=== PATIENT | male | born 1960 | race Caucasian/White ===

== ENCOUNTER 2021-12-02 12:09 | Inpatient (IN) ==
--- NOTE | 2021-12-02 14:54 | Emergency Department Note ---
Impression & Plan Acute CHF, GILL (dyspnea on exertion), Anemia ED Provider Note NAME: TAWANA [id number] HAYLEY AGE: 61 SEX: M : 1960 ARRIVES VIA: Walk-In INFORMANT: Patient, ED PROVIDER(S): Yrn Alonzo MD Chief Complaint: Shortness of breath HPI: Patient presents due to concern for shortness of breath which is been ongoing over approximately a 2-week period but is gotten progressively worse with an associated 20+ pound weight gain with associated low back or leg swelling. The patient has been started on Bumex 1.5 mg daily in the last several days. The patient reportedly had a recent echocardiogram and states that he was told that he likely will need a valve replacement. The patient does have a prior history of some lung disease. 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 The patient described the collateral circulation as veins grew around it and provided blood flow. The patient does not believe that this was in the heart. Patient denies any chest pains. The patient does have exertional dyspnea and orthopnea. Patient states he is compliant with his medications no drug or alcohol use. The patient is currently at [facility] and has been so since 2019. 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 These were not done recently. I did speak with Nuha BRENNER at the [facility] his did review the echo and stated the patient has an EF of 25% dilated LVH and hypokinesis with elevated LV pressure. She states that the patient had been on Lasix in the past but has been titrated trading his Bumex over the last 2 weeks and is currently taking 1.5 mg daily. Patient is to follow-up with [facility] physician group cardiology Dr. Johnson in the next month or so. Patient has not followed up with cardiology in some time. She did review the patient does not have any significant aortic valvular stenosis or regurg. The patient did have some mild to moderate tricuspid regurg. ROS: See HPI for pertinent positives and negatives. A total of 10 systems were reviewed and otherwise negative. Past medical history: See below Surgical history: See below Social history: See below Physical Exam: GENERAL: NAD, wearing a mask, non-toxic. Mild tachypnea. EYE EXAM: Normal conjunctiva. PERRL, no anisocoria and EOM's grossly intact w/o pain. NECK: Supple, no nuchal rigidity, no adenopathy, non-tender. No signs of meningismus. FROM of the neck with good chin to chest and neck extension. No stridor. LUNGS: Mild tachypnea with bibasilar crackles. Normal chest wall mechanics. HEART: NSR, no MRG. ABDOMEN: Abdomen soft, non-tender, normo-active bowel sounds, no masses, no rebound or guarding. BACK: No CVA TTP. SKIN: No rashes and no bruising. UPPER EXTREMITIES: Upper extremities are grossly normal. LOWER EXTREMITIES: Grossly normal, 2-3+ bilateral lower extremity edema. Patient TMA of the right foot, absent toes on left foot. NEURO EXAM: A&O x3, cranial nerves II-XII grossly intact, normal speech, moves all 4 extremities. Differential diagnoses: Reactive airway disease, pneumonia, pneumothorax, COPD, CHF, infections, cardiac ischemia, pulmonary embolism, musculoskeletal, gastrointestinal, as well as other pathologies. Course: Patient was seen and evaluated the bedside. Full history physical exam was performed. EKG interpreted by me Imaging Studies: See Below Cardiac monitoring: An order was placed for continuous cardiac monitoring. The monitor shows a rate of with rhythm. MDM: Patient was seen due to concern for orthopnea GILL leg swelling. The patient was told that he might benefit from a valve replacement and what he self describes as sounds like some aortic stenosis or regurg causing some of his symptoms. The patient states he is compliant with his medications and is taking a diuretic. Patient denies any fevers or chills. Blood work was obtained which included CBC CMP coags BNP COVID swab and chest x-ray. [id number] BMP also obtained. Patient's blood work showed a white count of 11 with a hemoglobin 11.9. Platelet count is unremarkable. Kidney function unremarkable. Patient does have elevation in troponin believe this is demand ischemia. BNP is elevated at 746. 2 mg of Bumex ordered. Patient is COVID-negative. Patient's plain chest film shows left pleural effusion patient does have cardiomegaly. I did speak the on-call hospitalist Dr. Llamas and the patient was admitted to the medicine service. Past Med/Surg History Medical History Adjustment disorder with depressed mood Anxiety disorder, unspecified Benign prostatic hyperplasia without lower urinary tract symptoms Chronic obstructive pulmonary disease, unspecified Hyperlipidemia, unspecified Other psoriasis Presence of cardiac pacemaker Thrombocytopenia, unspecified Type 2 diabetes mellitus with unspecified complications Social History Smoking Status: Never smoker Hx Alcohol Use: No Hx Substance Use: No Preferred Language: Wolof Communication Ability: Effective Certified Tower Climber Required: No Beliefs That Will Affect Care: None Current Living Situation: Other Current Living Situation Comment: claudia Other Information That Helps Us Care for You: No Feels Safe at Home: Yes Safety Concerns: Feels Safe At This Time Allergies Allergies Allergy/AdvReac Type Severity Reaction Status Date / Time No Known Allergies Allergy Verified 11/19/21 16:26 Home Meds Home Medications Medication Instructions Recorded Confirmed acetaminophen 500 mg tablet 500 mg PO Q6H PRN 11/19/21 11/19/21 (Tylenol Extra Strength) albuterol sulfate 90 mcg/actuation 2 puff inhalation Q4H PRN 11/19/21 11/19/21 aerosol inhaler ammonium lactate 12 % topical cream 1 applic topical DAILY 11/19/21 11/19/21 aspirin 81 mg tablet,delayed 81 mg PO DAILY 11/19/21 11/19/21 release atorvastatin 40 mg tablet 40 mg PO DAILY 11/19/21 11/19/21 ciclesonide 80 mcg/actuation 1 puff inhalation BID 11/19/21 11/19/21 aerosol inhaler (Alvesco) finasteride 5 mg tablet 5 mg PO DAILY 11/19/21 11/19/21 furosemide 20 mg tablet 20 mg PO DAILY 11/19/21 11/19/21 lisinopril 20 mg tablet 20 mg PO DAILY 11/19/21 11/19/21 metformin 1,000 mg tablet 1,000 mg PO BID 11/19/21 11/19/21 metoprolol tartrate 50 mg tablet 25 mg PO BID 11/19/21 11/19/21 (Lopressor) mineral [id number] glyc applic topical DAILY 11/19/21 11/19/21 topical cream mirtazapine 30 mg tablet 30 mg PO DAILY 11/19/21 11/19/21 nortriptyline 50 mg capsule 50 mg PO DAILY 11/19/21 11/19/21 omeprazole 20 mg capsule,delayed 20 mg PO DAILY 11/19/21 11/19/21 release tamsulosin 0.4 mg capsule 0.4 mg PO DAILY 11/19/21 11/19/21 umeclidinium 62.5 mcg/actuation 1 inh inhalation DAILY 11/19/21 11/19/21 blister powder for inhalation (Incruse Ellipta) Results & Data (ED) Vital Signs Vital Signs - 24 hr 12/02/21 12:13 12/02/21 15:28 12/02/21 15:28 Temperature 36.3 C L Temperature Source Temporal Artery Scan Pulse Rate 99 H Pulse Rate [Apical] 80 Pulse Rate from SpO2 Sensor Pulse Rhythm [Apical] Regular Pulse Strength [Apical] Normal Respiratory Rate 26 H 26 H Respiratory Effort / Characteristics Non-Labored Respiratory Depth Normal Respiratory Pattern Regular Blood Pressure 114/68 Blood Pressure [Left Arm] 158/74 H Blood Pressure Mean 83 Blood Pressure Mean [Left Arm] 102 Blood Pressure Position Sitting Blood Pressure Position [Left Arm] Lying Pulse Oximetry 97 94 94 Oxygen Delivery Method Room Air Room Air Room Air Oxygen Flow Rate 0 Sepsis Recent Fever Within 48 Hours No Sepsis New/Unexplained Change in Mental Status No Sepsis Action Taken by Nursing No Action Required 12/02/21 15:28 12/02/21 15:32 12/02/21 15:40 Temperature Temperature Source Pulse Rate 80 96 H 87 Pulse Rate [Apical] Pulse Rate from SpO2 Sensor 94 H 82 Pulse Rhythm [Apical] Pulse Strength [Apical] Respiratory Rate 31 H 32 H Respiratory Effort / Characteristics Respiratory Depth Respiratory Pattern Blood Pressure Blood Pressure [Left Arm] Blood Pressure Mean Blood Pressure Mean [Left Arm] Blood Pressure Position Blood Pressure Position [Left Arm] Pulse Oximetry 94 92 96 Oxygen Delivery Method Room Air Oxygen Flow Rate Sepsis Recent Fever Within 48 Hours Sepsis New/Unexplained Change in Mental Status Sepsis Action Taken by Nursing 12/02/21 15:50 12/02/21 16:00 12/02/21 16:10 Temperature Temperature Source Pulse Rate 84 96 H 89 Pulse Rate [Apical] Pulse Rate from SpO2 Sensor Pulse Rhythm [Apical] Pulse Strength [Apical] Respiratory Rate 41 H 31 H 18 Respiratory Effort / Characteristics Respiratory Depth Respiratory Pattern Blood Pressure Blood Pressure [Left Arm] Blood Pressure Mean Blood Pressure Mean [Left Arm] Blood Pressure Position Blood Pressure Position [Left Arm] Pulse Oximetry Oxygen Delivery Method Oxygen Flow Rate Sepsis Recent Fever Within 48 Hours Sepsis New/Unexplained Change in Mental Status Sepsis Action Taken by Nursing 12/02/21 16:20 12/02/21 16:30 12/02/21 16:40 Temperature Temperature Source Pulse Rate 89 98 H 96 H Pulse Rate [Apical] Pulse Rate from SpO2 Sensor Pulse Rhythm [Apical] Pulse Strength [Apical] Respiratory Rate 26 H 25 H 28 H Respiratory Effort / Characteristics Respiratory Depth Respiratory Pattern Blood Pressure Blood Pressure [Left Arm] Blood Pressure Mean Blood Pressure Mean [Left Arm] Blood Pressure Position Blood Pressure Position [Left Arm] Pulse Oximetry Oxygen Delivery Method Oxygen Flow Rate Sepsis Recent Fever Within 48 Hours Sepsis New/Unexplained Change in Mental Status Sepsis Action Taken by Nursing 12/02/21 16:50 12/02/21 17:00 12/02/21 17:10 Temperature Temperature Source Pulse Rate 95 H 86 91 H Pulse Rate [Apical] Pulse Rate from SpO2 Sensor Pulse Rhythm [Apical] Pulse Strength [Apical] Respiratory Rate 29 H 28 H 25 H Respiratory Effort / Characteristics Respiratory Depth Respiratory Pattern Blood Pressure Blood Pressure [Left Arm] Blood Pressure Mean Blood Pressure Mean [Left Arm] Blood Pressure Position Blood Pressure Position [Left Arm] Pulse Oximetry Oxygen Delivery Method Oxygen Flow Rate Sepsis Recent Fever Within 48 Hours Sepsis New/Unexplained Change in Mental Status Sepsis Action Taken by [facility] Medications Current Medication List: was personally reviewed by me Laboratory Data Attestation: I reviewed the patient's lab results. Result diagrams: 12/02/21 14:45 12/02/21 14:45 Lab Results 12/02/21 12/02/21 12/02/21 Range/Units 14:45 14:45 14:45 WBC 11.47 H (4.8-10.8) K/ul RBC 4.44 L (4.63-6.08) M/uL Hgb 11.9 L (14.0-18.0) g/dl Hct 36.9 L (40.1-51.0) % MCV 83.1 (80.0-100.0) fL MCH 26.8 (25.0-34.0) pg MCHC 32.2 (32.0-36.0) g/dL RDW Std Deviation 45.7 (36.4-46.3) fL RDW Coeff of Lamonte 15.1 H (11.5-14.5) % Plt Count 256 (130-400) K/uL MPV 12.3 (9.4-12.4) fL Immature Gran % (Auto) 0.3 % Neut % (Auto) 77.2 % Lymph % (Auto) 15.3 % Cowley % (Auto) 5.7 % Eos % (Auto) 1.0 % Baso % (Auto) 0.5 % Neut # (Auto) 8.85 H (1.4-6.5) K/uL Lymph # (Auto) 1.75 (1.2-3.4) K/uL Cowley # (Auto) 0.65 (0.24-0.82) K/uL Eos # (Auto) 0.12 (0-0.50) K/uL Baso # (Auto) 0.06 (0-0.2) K/uL Immature Gran # (Auto) 0.04 H (0.00-0.02) K/uL PT 11.8 (9.0-12.0) Seconds INR 1.1 (0.9-1.1) APTT 29.9 (21.0-31.0) Seconds PTT Ratio 1.1 Sodium 138 (136-145) mmol/L Potassium 4.0 (3.5-5.1) mmol/L Chloride 103 (98-107) mmol/L Carbon Dioxide 24 (21-32) mmol/L Anion Gap 11 (3-11) BUN 12 (6-23) mg/dl Creatinine 0.94 (0.6-1.4) mg/dl Est Cr Clr Drug Dosing Not Reportable Est GFR ( Amer) 99.6 ml/min Est GFR (Non-Af Amer) 85.9 ml/min BUN/Creatinine Ratio 12.8 (10-20) Glucose 124 H (70-99(Fasting)) mg/dl Calcium 8.9 (8.5-10.1) mg/dl Magnesium 1.2 L (1.7-2.4) mg/dl Total Bilirubin 0.5 (0.2-1.0) mg/dl AST 10 L (13-39) U/L ALT 12 (7-52) U/L Alkaline Phosphatase 97 (34-104) U/L Troponin I High Sens 21.4 H (0-20) pg/ml B-Natriuretic Peptide (0-100) pg/ml Total Protein 7.0 (6.0-8.3) gm/dl Albumin 4.0 (3.4-5.0) gm/dl Globulin 3.0 (2.5-4.0) gm/dl Albumin/Globulin Ratio 1.3 (0.9-2) SARS-CoV-2, RNA, NAAT (NEGATIVE) 12/02/21 12/02/21 Range/Units 14:45 15:20 WBC (4.8-10.8) K/ul RBC (4.63-6.08) M/uL Hgb (14.0-18.0) g/dl Hct (40.1-51.0) % MCV (80.0-100.0) fL MCH (25.0-34.0) pg MCHC (32.0-36.0) g/dL RDW Std Deviation (36.4-46.3) fL RDW Coeff of Lamonte (11.5-14.5) % Plt Count (130-400) K/uL MPV (9.4-12.4) fL Immature Gran % (Auto) % Neut % (Auto) % Lymph % (Auto) % Cowley % (Auto) % Eos % (Auto) % Baso % (Auto) % Neut # (Auto) (1.4-6.5) K/uL Lymph # (Auto) (1.2-3.4) K/uL Cowley # (Auto) (0.24-0.82) K/uL Eos # (Auto) (0-0.50) K/uL Baso # (Auto) (0-0.2) K/uL Immature Gran # (Auto) (0.00-0.02) K/uL PT (9.0-12.0) Seconds INR (0.9-1.1) APTT (21.0-31.0) Seconds PTT Ratio Sodium (136-145) mmol/L Potassium (3.5-5.1) mmol/L Chloride (98-107) mmol/L Carbon Dioxide (21-32) mmol/L Anion Gap (3-11) BUN (6-23) mg/dl Creatinine (0.6-1.4) mg/dl Est Cr Clr Drug Dosing Est GFR ( Amer) ml/min Est GFR (Non-Af Amer) ml/min BUN/Creatinine Ratio (10-20) Glucose (70-99(Fasting)) mg/dl Calcium (8.5-10.1) mg/dl Magnesium (1.7-2.4) mg/dl Total Bilirubin (0.2-1.0) mg/dl AST (13-39) U/L ALT (7-52) U/L Alkaline Phosphatase (34-104) U/L Troponin I High Sens (0-20) pg/ml B-Natriuretic Peptide 746 H (0-100) pg/ml Total Protein (6.0-8.3) gm/dl Albumin (3.4-5.0) gm/dl Globulin (2.5-4.0) gm/dl Albumin/Globulin Ratio (0.9-2) SARS-CoV-2, RNA, NAAT NEGATIVE (NEGATIVE) Administered Medications Enoxaparin Sodium (Enoxaparin Inj 40 Mg/0.4 Ml Syr) 40 mg SQ Q24H PHILOMENA Stop: 01/01/22 19:59 Last Admin: 12/02/21 21:16 Dose: 40 mg Documented By: CARLENE Magnesium Sulfate/Dextrose (Magnesium Sulfate / D5w) 1 gm in 100 mls @ 50 mls/hr IV Q2H PHILOMENA Stop: 12/02/21 22:59 Last Admin: 12/02/21 21:25 Dose: 50 mls/hr Documented By: Infusion: 12/02/21 21:25 Dose: 50 mls/hr Documented By: Admin: 12/02/21 19:37 Dose: 50 mls/hr Documented By: Infusion: 12/02/21 19:34 Dose: 0 mls/hr Documented By: Admin: 12/02/21 17:34 Dose: 50 mls/hr Documented By: MANDY Insulin Aspart (Insulin Aspart Per Unit) 0 units SC ACHS PHILOMENA Stop: 01/01/22 20:59 Last Admin: 12/02/21 21:16 Dose: 9 units Documented By: CARLENE Co-signed By: MÓNICA Magnesium Oxide (Magnesium Oxide 400 Mg Tab) 400 mg PO BID PHILOMENA Stop: 01/01/22 20:59 Last Admin: 12/02/21 21:15 Dose: 400 mg Documented By: CARLENE Discontinued Medications Bumetanide 2 mg/ Syringe 8 mls @ 4 mls/min IV ONE ONE Stop: 12/02/21 16:05 Last Admin: 12/02/21 17:33 Dose: 4 mls/min Documented By: MANDY Imaging Data Radiologist's Impression: Chest X-Ray 12/02/21 12:18 SINGLE VIEW CHEST CLINICAL HISTORY: Dyspnea. FINDINGS: An AP, portable, upright chest radiograph is obtained. No prior studies are available for comparison at the time of dictation. The examination is degraded by portable technique and patient rotation. A 2-lead cardiac pacemaker is in place. The heart is enlarged noting atherosclerotic calcificati on of the thoracic aorta. There is pulmonary vascular congestion with mild pulmonary edema. There is a left pleural effusion with left basilar consolidation. Trace pleural effusion is seen on the right. No pneumothorax is seen. The skeletal structures are osteopenic. The bony thorax is grossly intact. IMPRESSION: 1. Cardiomegaly and cardiac pacemaker without evidence of congestive failure and pulmonary edema. 2. Left pleural effusion with dependent consolidation. ACT 112: Negative or not required by law. Electronically signed by: Mejia Clements M.D. 12/02/2021 3:48 PM Discharge Plan Visit Data Chief Complaint: Shortness of Breath/Dyspnea Stated Complaint: SOB, LOW ENERGY ED Provider: Yrn Alonzo Discharge Problem: Acute CHF, GILL (dyspnea on exertion), Anemia Patient Disposition: Admitted As Inpatient Discharge Instructions Interventions: ED Discharge Assessment Last Done: 12/02/21 18:45
[2021-12-02 15:31] LABS: Basophils # (auto) 0.06 K/uL (0-0.2); Basophils % (auto) 0.5 %; Eosinophils # (auto) 0.12 K/uL (0-0.50); Hematocrit (blood only) 36.9 % (40.1-51.0); Hemoglobin 11.9 g/dl (14.0-18.0); Immature Granulocytes # (auto) 0.04 K/uL (0.00-0.02); Immature Granulocytes % (auto) 0.3 %; Lymphocytes # (auto) 1.75 K/uL (1.2-3.4); Lymphocytes % (auto) 15.3 %; Mean Corpuscular Hemoglobin 26.8 pg (25.0-34.0); Mean Corpuscular Hgb Conc 32.2 g/dL (32.0-36.0); Mean Corpuscular Volume 83.1 fL (80.0-100.0); Mean Platelet Volume 12.3 fL (9.4-12.4); Monocytes # (auto) 0.65 K/uL (0.24-0.82); Monocytes % (auto) 5.7 %; Neutrophils # (auto) 8.85 K/uL (1.4-6.5); Neutrophils % (auto) 77.2 %; Platelet Count 256 K/uL (130-400); RDW Coefficient of Variation 15.1 % (11.5-14.5); RDW Standard Deviation 45.7 fL (36.4-46.3); Red Blood Count 4.44 M/uL (4.63-6.08); White Blood Count 11.47 K/ul (4.8-10.8)
[2021-12-02 15:43] LABS: INR 1.1 (0.9-1.1); Partial Thromboplastin Ratio 1.1; Partial Thromboplastin Time 29.9 Seconds (21.0-31.0); Prothrombin Time 11.8 Seconds (9.0-12.0)
--- NOTE | 2021-12-02 15:49 | XRay Report ---
SINGLE VIEW CHEST CLINICAL HISTORY: Dyspnea. FINDINGS: An AP, portable, upright chest radiograph is obtained. No prior studies are available for c omparison at the time of dictation. The examination is degraded by portable technique and patient rot ation. A 2-lead cardiac pacemaker is in place. The heart is enlarged noting atherosclerotic calcifica tion of the thoracic aorta. There is pulmonary vascular congestion with mild pulmonary edema. There i s a left pleural effusion with left basilar consolidation. Trace pleural effusion is seen on the righ t. No pneumothorax is seen. The skeletal structures are osteopenic. The bony thorax is grossly intact . IMPRESSION: 1. Cardiomegaly and cardiac pacemaker without evidence of congestive failure and pulmonary edema. 2. Left pleural effusion with dependent consolidation. ACT 112: Negative or not required by law. Electronically signed by: Mejia Clements M.D. 12/02/2021 3:48 PM
[2021-12-02 15:56] LABS: Alanine Aminotransferase 12 U/L (7-52); Albumin Globulin Ratio 1.3 (0.9-2); Alkaline Phosphatase 97 U/L (34-104); Anion Gap 11 (3-11); Aspartate Aminotransferase 10 U/L (13-39); BUN Creatinine Ratio 12.8 (10-20); Bilirubin,Total 0.5 mg/dl (0.2-1.0); Blood Urea Nitrogen 12 mg/dl (6-23); Calcium 8.9 mg/dl (8.5-10.1); Carbon Dioxide 24 mmol/L (21-32); Chloride 103 mmol/L (98-107); Est GFR (African American) 99.6 ml/min; Est GFR (Non-African American) 85.9 ml/min; Glucose 124 mg/dl (70-99(Fasting)); Magnesium 1.2 mg/dl (1.7-2.4); Sodium 138 mmol/L (136-145); Troponin I High Sensitivity 21.4 pg/ml (0-20)
[2021-12-02] MEDS ORDERED: BUMETANIDE 2 MG in SYRINGE 0 ML IV ONE (16:04)
--- NOTE | 2021-12-02 16:56 | History & Physical Report ---
Date of Service December 02, 2021 Assessment & Plan (1) Acute CHF: Plan: 61-year-old male with a history of CHF who presents with weight gain, shortness of breath, and elevated BNP with worsening lower extremity edema and without chest pain suspicious for acute on chronic CHF exacerbation Acute on chronic CHF Echo: Pending Continue aspirin daily Continue for statin 40 mg daily Patient on Lasix 20 mg daily [employer], given Bumex 2 mg in ER Continue metoprolol 25 mg p.o. twice daily tartrate, can convert this to succinate as outpatient if available Hypertensive, tachypneic on admission. No home oxygen requirement CXR: Cardiomegaly and pacemaker in place, mild pulmonary edema. Left pleural effusion with dependent consolidation is appreciated WBC 11.47, procalcitonin pending Patient clinically improving after receiving Bumex in the ER BNP 746, no prior baseline Troponin 21.4, EKG minus rhythm without ST segment changes QTC 523 COVID-negative Patient reports that he also thinks he has a tight valve, no follow-up has been scheduled for this but was told he may need it replaced at some point. We will follow on echo? Left ear CAD, history of [place] Patient reports he had a cardiac arrest when his pacer maker was being placed for bradycardia. Subsequent catheterization showed diffuse disease with collateral flow not amenable to stenting Has not had worsened chest pain with the shortness of breath, is not having chest pain at time of assessment Former smoker History of diabetes Troponin mildly elevated without acute ST elevations, suspicious for demand Treat acute on chronic CHF and follow qt prolongation With hypomagnesemia to 1.2 Magnesium lesion ordered, trended Chronically on mirtazapine and nortriptyline. Follow on telemetry Above meds held, patient reports he does not need to take The pain any longer. Takes nortriptyline for neuropathy Type 2 diabetes mellitus Hold metformin Basal bolus SSI DM diet Nortriptyline temporarily held for QT prolongation Anxiety/depression Patient reports he had been on mirtazapine for some adjustment going to senior care, does not need medications any longer. Given QT will also hold GERD Convert PPI to Protonix while inpatient LUTS Continue Flomax daily COPD/Asthma No PFTs available for review Continue umeclidinium/Alvesco or formulary eqiuvalent daily (2) Anxiety disorder, unspecified: (3) Chronic obstructive pulmonary disease, unspecified: (4) Hyperlipidemia, unspecified: (5) Presence of cardiac pacemaker: (6) Type 2 diabetes mellitus with unspecified complications: History of Present Illness Primary Care Provider: KARRI Rosado is a 61-year-old male with a past medical history of CHF who presents from the [facility] for concerns of a CHF overload. He has had 2 weeks of increased lower extremity swelling with associated shortness of breath, reportedly an echo was performed 11/12 are pending the records of this. Dizziness for one week, worsening shortness of breathWith weight gain and dyspnea on exertion. Denies chest pain/worsening chest pain/angina. No nausea, vomiting, diarrhea. Describes dizziness as fatigue and lightheadedness, not room spinning Had an echo at the senior care 11/12 and was reportedly told that he needed a defibrillator and potential valve at some point, is not sure of the details of this. Report is pending and requested in the ER. Will repeat echo given that this as not been able to be obtained at this time No chest pain at assessment Hx of pacer for bradycardia at [facility] and no problems since. Arrested during placement, had an [place] procedurally had a cath and disease not amenable to stending with collaterals per patient Increased shortness of breath worsened with movement NO urinary problems, dysuria. Pees a lot with his Lasix which she takes as prescribed Bilat leg swelling and 21lb weight gain in the last month. Dry weight ~240 pt thinks. Ports he is on metformin and Lantus in the senior care, thinks he is on 40 twice daily +2 units as needed and thinks that this is a long-acting COPD at baseline, feels he has not been wheezing former smoker. Medical History: Reviewed Medications: Reviewed Surgical History: Reviewed Allergies: Reviewed Social History: Reviewed, denies tobacco/etoh in senior care Code Status: Full Allergies Allergy/AdvReac Type Severity Reaction Status Date / Time No Known Allergies Allergy Verified 11/19/21 16:26 Home Medications Medication Instructions Recorded Confirmed Type acetaminophen 500 mg tablet 500 mg PO Q6H PRN 11/19/21 11/19/21 History (Tylenol Extra Strength) albuterol sulfate 90 mcg/actuation 2 puff inhalation Q4H PRN 11/19/21 11/19/21 History aerosol inhaler ammonium lactate 12 % topical cream 1 applic topical DAILY 11/19/21 11/19/21 History aspirin 81 mg tablet,delayed 81 mg PO DAILY 11/19/21 11/19/21 History release atorvastatin 40 mg tablet 40 mg PO DAILY 11/19/21 11/19/21 History ciclesonide 80 mcg/actuation 1 puff inhalation BID 11/19/21 11/19/21 History aerosol inhaler (Alvesco) finasteride 5 mg tablet 5 mg PO DAILY 11/19/21 11/19/21 History furosemide 20 mg tablet 20 mg PO DAILY 11/19/21 11/19/21 History lisinopril 20 mg tablet 20 mg PO DAILY 11/19/21 11/19/21 History metformin 1,000 mg tablet 1,000 mg PO BID 11/19/21 11/19/21 History metoprolol tartrate 50 mg tablet 25 mg PO BID 11/19/21 11/19/21 History (Lopressor) mineral [id number] glyc applic topical DAILY 11/19/21 11/19/21 History topical cream mirtazapine 30 mg tablet 30 mg PO DAILY 11/19/21 11/19/21 History nortriptyline 50 mg capsule 50 mg PO DAILY 11/19/21 11/19/21 History omeprazole 20 mg capsule,delayed 20 mg PO DAILY 11/19/21 11/19/21 History release tamsulosin 0.4 mg capsule 0.4 mg PO DAILY 11/19/21 11/19/21 History umeclidinium 62.5 mcg/actuation 1 inh inhalation DAILY 11/19/21 11/19/21 History blister powder for inhalation (Incruse Ellipta) Past Med/Surg History Medical History (Updated 12/02/21 @ 17:09 by Jose David Llamas MD) Adjustment disorder with depressed mood Anxiety disorder, unspecified Benign prostatic hyperplasia without lower urinary tract symptoms Chronic obstructive pulmonary disease, unspecified Hyperlipidemia, unspecified Other psoriasis Presence of cardiac pacemaker Thrombocytopenia, unspecified Type 2 diabetes mellitus with unspecified complications Social History Smoking Status: Former smoker Preferred Language: [place] Feels Safe at Home: Yes Review of Systems Review of Systems: All systems reviewed & are unremarkable except as noted in Subjective Physical Exam Physical Exam: General: A&Ox3. NAD. Cooperative. HEENT: Atraumatic, normocephalic. Hearing grossly intact, pupils equal and reactive to Pulm: Bibasilar crackles. Tachypneic. No wheezes. Cardiac: RRR, soft systolic murmur.. Radial pulses intact and symmetrical. JVD is present Abdominal: Nontender, nondistended, soft. BS present. Extremities: Pitting edema in the lower extremities bilaterally sensation soft touch intact at lateral legs, patient does endorse some neuropathy and diminished but not absent sensation to soft touch in feet bilaterally Results & Data Results & Data ([facility]) Vital Signs (Past 12 Hours) Vital Signs Temp Pulse Pulse Resp BP BP Pulse Ox 12/02/21 15:28 80 94 12/02/21 15:28 80 26 H 158/74 H 94 12/02/21 15:28 94 12/02/21 12:13 36.3 C L 99 H 26 H 114/68 97 O2 Del Method O2 Flow Rate 12/02/21 15:28 Room Air 12/02/21 15:28 Room Air 12/02/21 15:28 Room Air 0 12/02/21 12:13 Room Air PG Care Time/CCT Total # of Minutes Spent Total Time Spent with Patient: Total time spent is greater than 50% in coordination of care (as documented) at patient's floor/unit and/or counseling patient: Coding Level of Care Code 14968 Initial Inpt Care Lvl 2 Diagnoses Acute CHF I50.9 Anxiety disorder, unspecified F41.9 Chronic obstructive pulmonary disease, unspecified J44.9 Hyperlipidemia, unspecified E78.5 Presence of cardiac pacemaker Z95.0 Type 2 diabetes mellitus with unspecified complications E11.8
[2021-12-02] MEDS: MAGNESIUM SULFATE / D5W 1 GM/100 ML BAG IV SCH ×3 (17:34→21:25)
[2021-12-02 17:43] LABS: Appearance Urine Clear (Clear); Bilirubin Urine Negative (Negative); Blood Urine Negative (Negative); Color Urine Yellow; Glucose Urine UA Negative (Negative); Ketones Urine 1+ (Negative); Leukocyte Esterase Urine Negative (Negative); Nitrite Urine Negative (Negative); Protein Urine Negative (Negative); Specific Gravity Urine 1.003 (1.000-1.030); Urobilinogen Urine Negative (Negative); pH Urine 6.5 (4.5-7.5)
[2021-12-02] MEDS ORDERED: PHARMACY GLYCEMIC MGMT CONSULT PRN (19:21)
[2021-12-02] MEDS ORDERED: GLUCOSE 10 TAB/TUBE PO PRN (20:00)
[2021-12-02] MEDS ORDERED: CARBOHYDRATES FOR HYPOGLYCEMIA PO PRN (20:00)
[2021-12-02] MEDS ORDERED: GLUCOSE 40% GEL 15 GM TUBE PO PRN (20:00)
[2021-12-02] MEDS ORDERED: GLUCAGON FOR INJ 1 MG VIAL IM PRN (20:00)
[2021-12-02] MEDS ORDERED: DEXTROSE 50% 50 ML SYRINGE IV PRN (20:00)
[2021-12-02] MEDS: MAGNESIUM OXIDE 400 MG TAB PO SCH (21:15)
[2021-12-02] MEDS: ENOXAPARIN INJ 40 MG/0.4 ML SYR SQ SCH (21:16)
[2021-12-02] MEDS: INSULIN ASPART PER UNIT SC SCH (21:16)
[2021-12-03 02:23] LABS: Basophils # (auto) 0.06 K/uL (0-0.2); Basophils % (auto) 0.5 %; Eosinophils # (auto) 0.16 K/uL (0-0.50); Eosinophils % (auto) 1.3 %; Hematocrit (blood only) 38.3 % (40.1-51.0); Hemoglobin 12.2 g/dl (14.0-18.0); Immature Granulocytes # (auto) 0.03 K/uL (0.00-0.02); Immature Granulocytes % (auto) 0.2 %; Lymphocytes # (auto) 1.63 K/uL (1.2-3.4); Lymphocytes % (auto) 12.9 %; Mean Corpuscular Hgb Conc 31.9 g/dL (32.0-36.0); Mean Corpuscular Volume 84.7 fL (80.0-100.0); Mean Platelet Volume 12.2 fL (9.4-12.4); Monocytes % (auto) 7.9 %; Neutrophils # (auto) 9.78 K/uL (1.4-6.5); Neutrophils % (auto) 77.2 %; Platelet Count 249 K/uL (130-400); RDW Coefficient of Variation 15.2 % (11.5-14.5); RDW Standard Deviation 46.6 fL (36.4-46.3); Red Blood Count 4.52 M/uL (4.63-6.08); White Blood Count 12.66 K/ul (4.8-10.8)
[2021-12-03 02:53] LABS: BUN Creatinine Ratio 12.9 (10-20); Calcium 8.7 mg/dl (8.5-10.1); Creatinine Clr Calc Pharmacy 100.8 ml/min; Est GFR (African American) 91.3 ml/min; Est GFR (Non-African American) 78.8 ml/min; Magnesium 1.7 mg/dl (1.7-2.4); Potassium 3.7 mmol/L (3.5-5.1)
--- NOTE | 2021-12-03 05:44 | Electrocardiogram Report ---
Test Reason : Blood Pressure : / mmHG Vent. Rate : 100 BPM Atrial Rate : 100 BPM P-R Int : 192 ms QRS Dur : 148 ms QT Int : 406 ms P-R-T Axes : -09 -54 105 degrees QTc Int : 523 ms Sinus rhythm with Premature atrial complexes Left axis deviation Left bundle branch block Abnormal ECG No previous ECGs available Confirmed by Dino Johnson ([id number]) on 12/03/2021 5:43:31 AM Referred By: Confirmed By:Dino Johnson
[2021-12-03 07:18] LABS: Estimated Average Glucose 200 mg/dl; Hemoglobin A1C 8.6 % (4.5-5.6)
[2021-12-03] MEDS: INSULIN ASPART PER UNIT SC SCH ×4 (08:37→20:31)
[2021-12-03] MEDS: UMECLIDINIUM BROMIDE 62.5MCG/BLISTER 7 PUFFS/INHALER INH SCH (08:38)
[2021-12-03] MEDS: FUROSEMIDE 40 MG/4 ML VIAL IV SCH (08:38)
[2021-12-03] MEDS: FLUTICASONE FUROATE 100MCG 14 PUFFS/INHALER INH SCH (08:38)
[2021-12-03] MEDS: MAGNESIUM OXIDE 400 MG TAB PO SCH ×2 (08:39→20:20)
[2021-12-03] MEDS: lisinopril 20 MG TAB PO SCH (08:39)
[2021-12-03] MEDS: TAMSULOSIN HCL 0.4 MG CAP PO SCH (08:39)
[2021-12-03] MEDS: FINASTERIDE 5 MG TAB PO SCH (08:40)
[2021-12-03] MEDS: ASPIRIN 81 MG ECTAB PO SCH (08:40)
[2021-12-03] MEDS: ATORVASTATIN 40 MG TAB PO SCH (08:40)
[2021-12-03] MEDS: PANTOprazole 40 MG TAB PO SCH (08:40)
[2021-12-03] MEDS ORDERED: INSULIN HUMAN NPH SC ONE (08:45)
--- NOTE | 2021-12-03 11:36 | Pharmacy Report ---
Pharmacy Glycemic Short Note 2 - Date of Service December 03, 2021 - Glycemic Short BSG Results (Last 24 hours): 12/02/21 12/02/21 12/03/21 14:45 20:13 01:45 Glucose 124 H 153 H POC Glucose 171 H 12/03/21 07:58 Glucose POC Glucose 184 H OUTPATIENT ANTIDIABETIC REGIMEN: * A1C = 8.6% (12/03/21) * NPH 40 units BID + SSI for correction - confirmed with KARRI Capellan * metformin 1000 mg PO BID ASSESSMENT: * Jeb is a 61 yo T2DM admitted with CHF. He demonstrated decent BSG control on 12/02/21. * Fasting BSG of 184 mg/dL today. Will start patient on NPH BID per scale. Reduced dose compared to outpatient per I suspect he will receive significantly more Novolog while admitted. * Tighten Novolog parameters based on outpatient insulin use. PLAN FOR INPATIENT GLYCEMIC CONTROL: * Hold outpatient oral diabetes medications * Basal insulin * NPH 25-30 units SQ BID per scale (see eMAR for details) * Bolus insulin * NovoLog per scale ACHS or Q6hrs while NPO * Goal Range: Low 110 mg/dL - High 140 mg/dL * Correction Factor: 20 mg/dL/unit * Nutritional / Prandial insulin per carb ratio of 1 unit per 7 grams CHO consumed
[2021-12-03] MEDS: INSULIN HUMAN NPH SC SCH (16:56)
--- NOTE | 2021-12-03 17:15 | XCELERA ---
[id number]
[2021-12-03] MEDS: ENOXAPARIN INJ 40 MG/0.4 ML SYR SQ SCH (20:19)
--- NOTE | 2021-12-03 20:51 | Hospitalist Progress Note ---
Date of Service December 03, 2021 Assessment & Plan (1) Acute CHF: Plan: 61-year-old male with a history of CHF who presents with weight gain, shortness of breath, and elevated BNP with worsening lower extremity edema and without chest pain suspicious for acute on chronic CHF exacerbation Acute on chronic CHF Significantly reduced EFhis concern about whether or not he needs an ICD is certainly a valid 1we will ask cardiology -Continue aggressive diuresis -Continue afterload reduction with TONI inhibitorif care home formulary has Entresto, would definitely want to switch to this -Add spironolactone -Uncertain if present formulary has [id number] so certainly would want to add as well -Suspect ischemic cardiomyopathy as the culprit, asked for results of prior heart cath CAD, history of [place] Patient reports he had a cardiac arrest when his pacer maker was being placed for bradycardia. Subsequent catheterization showed diffuse disease with collateral flow not amenable to stenting Suspect he has an ischemic cardiomyopathyhave requested report of prior heart cath. Continue aspirin (ensure it is on his home meds at discharge) atorvastatin 40 mg (consider increase to 80) lisinopril, metoprolol. -None of current symptoms sound consistent with angina qt prolongation With hypomagnesemia to 1.2treatedimproved to 1.7. Repeat EKG. Chronically on mirtazapine and nortriptyline. Follow on telemetry Above meds held, patient reports he does not need to take The pain any longer. Takes nortriptyline for neuropathy Type 2 diabetes mellitus A1c 8.6. On basal bolus insulin. Sugars this morning were still little high, but improving through the daycontinue current care and follow. Anxiety/depression Patient reports he had been on mirtazapine for some adjustment going to care home, does not need medications any longer. Given QT will also hold GERD PPI LUTS Continue Flomax daily COPD/Asthma No PFTs available for review Continue umeclidinium/Alvesco or formulary eqiuvalent daily DVT prophylaxis Lovenox (2) Anxiety disorder, unspecified: (3) Chronic obstructive pulmonary disease, unspecified: (4) Hyperlipidemia, unspecified: (5) Presence of cardiac pacemaker: (6) Type 2 diabetes mellitus with unspecified complications: Admission and Anticipated Discharge Date Admission Date: December 02, 2021 Subjective Feeling better than beforebut still definitely dyspneic. Notes particularly whenever he lays down he gets short of breath and dizzy. Notes that his walking to and from the bathroom is less short of breath than it would have been yesterday or the day beforehe also notes that he is going to the bathroom and voiding quite copiously. Asks good questions about his echocardiogram and wo nders if he needs an ICD. 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 He notes his pacemaker to the best of his knowledge is not an ICD and actually wonders with his low EF if he would require 1. Notes that he had a heart cath done probably 3 or 4 years ago it sounds like he had at least one dominant blockage with collaterals, its unclear what the rest of the findings were. Review of Systems Review of Systems: All systems reviewed & are unremarkable except as noted in HPI & below Physical Exam Physical Exam: In general he is awake and alert pleasant no distress. HEENT normocephalic atraumatic mucous membranes moist. Lungs show rales to about the mid lung field bilaterally he has good air entry otherwise no other rhonchi or wheezes good effort no accessory muscle use. Neuro shows cranial nerves II through XII be grossly intact gross motor and sensory intact. Results & Data Results & Data ([facility]) Vital Signs (Past 12 Hours) Vital Signs Temp Pulse Resp BP BP Pulse Ox O2 Del Method 12/03/21 20:36 Room Air 12/03/21 20:24 97.3 F L 109 H 20 130/87 93 Room Air 12/03/21 15:40 97.5 F L 109 H 22 133/95 95 Room Air 12/03/21 11:44 97.7 F 104 H 18 128/85 92 Room Air 12/03/21 10:55 Room Air PG Care Time/CCT Total # of Minutes Spent Total Time Spent with Patient: Total time spent is greater than 50% in coordination of care (as documented) at patient's floor/unit and/or counseling patient: Coding Level of Care Code 65018 Subseq Hosp Care Lvl 3 Diagnoses Acute CHF I50.9 Anxiety disorder, unspecified F41.9 Chronic obstructive pulmonary disease, unspecified J44.9 Hyperlipidemia, unspecified E78.5 Presence of cardiac pacemaker Z95.0 Type 2 diabetes mellitus with unspecified complications E11.8
[2021-12-04] MEDS: ACETAMINOPHEN 325 MG TAB PO PRN ×2 (05:38→21:38)
[2021-12-04 07:30] LABS: BUN Creatinine Ratio 14.7 (10-20); Calcium 8.8 mg/dl (8.5-10.1); Creatinine Clr Calc Pharmacy 89.5 ml/min; Est GFR (African American) 83.3 ml/min; Est GFR (Non-African American) 71.9 ml/min; Potassium 4.2 mmol/L (3.5-5.1)
[2021-12-04] MEDS: INSULIN HUMAN NPH SC SCH ×2 (09:19→16:55)
[2021-12-04] MEDS: INSULIN ASPART PER UNIT SC SCH ×4 (09:20→21:37)
[2021-12-04] MEDS: FINASTERIDE 5 MG TAB PO SCH (09:22)
[2021-12-04] MEDS: PANTOprazole 40 MG TAB PO SCH (09:22)
[2021-12-04] MEDS: lisinopril 20 MG TAB PO SCH (09:22)
[2021-12-04] MEDS: ATORVASTATIN 40 MG TAB PO SCH (09:22)
[2021-12-04] MEDS: MAGNESIUM OXIDE 400 MG TAB PO SCH ×2 (09:22→21:37)
[2021-12-04] MEDS: ASPIRIN 81 MG ECTAB PO SCH (09:22)
[2021-12-04] MEDS: SPIRONOLACTONE 25 MG TAB PO SCH (09:22)
[2021-12-04] MEDS: TAMSULOSIN HCL 0.4 MG CAP PO SCH (09:22)
[2021-12-04] MEDS: UMECLIDINIUM BROMIDE 62.5MCG/BLISTER 7 PUFFS/INHALER INH SCH (09:22)
[2021-12-04] MEDS: FLUTICASONE FUROATE 100MCG 14 PUFFS/INHALER INH SCH (09:23)
[2021-12-04] MEDS: FUROSEMIDE 40 MG/4 ML VIAL IV SCH (09:23)
--- NOTE | 2021-12-04 12:07 | Cardiology Consultation ---
Date of Consultation December 04, 2021 Assessment & Plan (1) Cardiomyopathy: (2) Mitral regurgitation: (3) GILL (dyspnea on exertion): (4) Acute CHF: (5) Left bundle branch block: (6) Coronary artery disease: (7) Presence of cardiac pacemaker: (8) Elevated troponin: Plan 1. Cardiomyopathy: He has severely reduced LV systolic function. This appears global. However, he does have a known history of coronary disease and this is likely ischemic in etiology. We will try to obtain some records from his prior evaluation to determine if repeat angiography is worthwhile. We should make his medical regimen more aggressive. I will start him on metoprolol succinate at his past dose of metoprolol tartrate. Spironolactone was recently started. Will change his lisinopril to Entresto. Think we can also start Jardiance. 2. Decompensated systolic heart failure: He clearly had an elevated BNP, increasing weight and dyspnea. He is responding well to diuresis. Symptoms and weight are improving. Renal function electrolytes appear stable. He appears to been on a small dose of diuretic as an outpatient. Perhaps tomorrow we can transition back to an oral regimen. 3. Coronary disease: By report. He clearly has multiple risk factors. Currently on a daily aspirin and high-dose atorvastatin. I will order him a lipid panel for the morning. He does not report symptoms of coronary insufficiency or angina. However, given his cardiomyopathy he may benefit from repeat angiography. Will wait his old reports. 4. Mitral regurgitation: Mild to moderate. 5. Borderline aortic root dilation 6. Bradycardia: He has a normally functioning dual-chamber permanent pacemaker. Interrogation performed today revealed some far field over sensing. I changed him to MVP mode. I was not able to complete the entire interrogation as he needed to use the restroom urgently. The device recorded atrial fibrillation, but I believe these are simply episodes of over sensing and atrial ectopy. 7. Left bundle branch block: He appears have a left bundle branch block morphology on his EKG. QRS duration is greater than 150 milliseconds. It is not clear this represents pseudo fusion as it did appear that he was pacing quite frequently on his device interrogation. I switched his mode. Will repeat an EKG. If he has persistently low left ventricular function despite guideline directed medical therapy than he would be a candidate for an ICD and with his left bundle branch block a good candidate for ULTRASOUND TECHNOLOGIST SONOGRAPHER. 8. Reported history of intracranial hemorrhage and possible aneurysm. 9. Elevated troponin: Likely related to his cardiomyopathy and acute heart failure. I do not believe this is technical support representative of a recent acute coronary event. History of Present Illness Reason for Consultation: Congestive heart failure, cardiomyopathy Requesting Physician: Yaw Attending Physician: Han Tidwell, DO History of Present Illness The patient is a 61-year-old gentleman with an extensive cardiac history who was admitted from the present with symptoms of worsening shortness of breath and edema. The patient states that his history starts many years ago when he was likely referred for routine evaluation due to risk factors for cardiac disease. He was felt to have had evidence of an old infarct presumably on EKG and referred for coronary angiography. He believes this occurred approximately 4 years ago. He states that the angiography revealed obstructive coronary disease with good collateralization and no intervention was performed. He subsequent developed an element of bradycardia. Did not report symptoms consistent with bradycardia, but did report a history of a low heart rate. It seems that he was advised to undergo implantation of a pacemaker. The procedure was delayed due to infections in his toes. At his facility he was noted to have an element of edema. An echocardiogram was ordered and by his report this demonstrated some heart failure. Over the few days leading up to his admission he had periods of orthopnea and worsening dyspnea with any activity. He was noted to have gained a significant amount of weight possibly 21 lb. He can usually perform routine activity without limiting dyspnea. He has not been aware of any chest pains. While he did state that he was told he had a heart attack at 1 point, he does not recall any symptoms associated with such an event. He generally does not have dizziness or lightheadedness. He cannot recall any syncopal episodes. He is generally not been aware of any palpitations. Currently feeling somewhat lightheaded if he closes eyes. No orthopnea currently. Breathing better today. Allergies Allergy/AdvReac Type Severity Reaction Status Date / Time No Known Allergies Allergy Verified 11/19/21 16:26 Home Medications Medication Instructions Recorded Confirmed Type acetaminophen 500 mg tablet 500 mg PO Q6H PRN 11/19/21 11/19/21 History (Tylenol Extra Strength) albuterol sulfate 90 mcg/actuation 2 puff inhalation Q4H PRN 11/19/21 11/19/21 History aerosol inhaler ammonium lactate 12 % topical cream 1 applic topical DAILY 11/19/21 11/19/21 History aspirin 81 mg tablet,delayed 81 mg PO DAILY 11/19/21 11/19/21 History release atorvastatin 40 mg tablet 40 mg PO DAILY 11/19/21 11/19/21 History ciclesonide 80 mcg/actuation 1 puff inhalation BID 11/19/21 11/19/21 History aerosol inhaler (Alvesco) finasteride 5 mg tablet 5 mg PO DAILY 11/19/21 11/19/21 History furosemide 20 mg tablet 20 mg PO DAILY 11/19/21 11/19/21 History lisinopril 20 mg tablet 20 mg PO DAILY 11/19/21 11/19/21 History metformin 1,000 mg tablet 1,000 mg PO BID 11/19/21 11/19/21 History metoprolol tartrate 50 mg tablet 25 mg PO BID 11/19/21 11/19/21 History (Lopressor) mineral [id number] glyc applic topical DAILY 11/19/21 11/19/21 History topical cream mirtazapine 30 mg tablet 30 mg PO DAILY 11/19/21 11/19/21 History nortriptyline 50 mg capsule 50 mg PO DAILY 11/19/21 11/19/21 History omeprazole 20 mg capsule,delayed 20 mg PO DAILY 11/19/21 11/19/21 History release tamsulosin 0.4 mg capsule 0.4 mg PO DAILY 11/19/21 11/19/21 History umeclidinium 62.5 mcg/actuation 1 inh inhalation DAILY 11/19/21 11/19/21 History blister powder for inhalation (Incruse Ellipta) Patient History Medical History Adjustment disorder with depressed mood Anxiety disorder, unspecified Benign prostatic hyperplasia without lower urinary tract symptoms Chronic obstructive pulmonary disease, unspecified Hyperlipidemia, unspecified Other psoriasis Presence of cardiac pacemaker Thrombocytopenia, unspecified Type 2 diabetes mellitus with unspecified complications Social History Smoking Status: Never smoker Hx Alcohol Use: No Hx Substance Use: No Preferred Language: Burkinan Communication Ability: Effective Frameman Required: No Beliefs That Will Affect Care: None Current Living Situation: Other Current Living Situation Comment: [facility] Other Information That Helps Us Care for You: No Feels Safe at Home: Yes Safety Concerns: Feels Safe At This Time Review of Systems Review of Systems: Per HPI. Reported history of a brain aneurysm and subsequent hemorrhage. Initial presentation involve a headache. Treated conservatively. Physical Exam Physical Exam: The patient is alert and oriented. Mood and affect appeared normal. He answered all questions appropriately. HEENT: Pupils are equal and reactive to light and accommodation. Extraocular movements are intact. The sclerae are anicteric. Neuro: Cranial nerves intact Lungs: Clear to auscultation bilaterally. He has good air movement without use of accessory muscles. No rales wheezes or rhonchi. Chest: Well-healed pacemaker implant site in the left upper pectoral area. Cardiac: Heart demonstrates a regular rate and rhythm with frequent ectopy. Normal S1 and S2. No murmurs on examination. Pulses: The patient has palpable radial pulses bilaterally that are equal in intensity Extremities: There was no evidence of hypoperfusion. There is no cyanosis or clubbing. Mild to moderate lower extremity edema to mid calf Skin: I did not appreciate any rashes on examination today. Results & Data ([facility]) Vital Signs (Past 12 Hours) Vital Signs Temp Pulse Pulse Resp BP Pulse Ox O2 Del Method 12/04/21 07:45 Room Air 12/04/21 07:37 36.5 C 99 H 20 134/85 94 Room Air 12/04/21 03:57 36.7 C 95 H 18 139/73 94 Room Air Laboratory Results Abnormal Lab Results 12/03/21 12/03/21 12/03/21 13:58 16:09 20:26 Sodium Potassium Chloride Carbon Dioxide Anion Gap BUN Creatinine Est Cr Clr Drug Dosing Est GFR ( Amer) Est GFR (Non-Af Amer) BUN/Creatinine Ratio Glucose POC Glucose 100 H 166 H Calcium Troponin I High Sens 25.1 H 12/04/21 12/04/21 12/04/21 06:22 07:30 11:15 Sodium 135 L Potassium 4.2 Chloride 101 Carbon Dioxide 25 Anion Gap 9 BUN 16 Creatinine 1.09 Est Cr Clr Drug Dosing 89.5 Est GFR ( Amer) 83.3 Est GFR (Non-Af Amer) 71.9 BUN/Creatinine Ratio 14.7 Glucose 185 H POC Glucose 189 H 238 H Calcium 8.8 Troponin I High Sens Diagnostic Findings Echocardiogram obtained on 12/03/2021: Severely reduced LV systolic function with ejection fraction 25-30%. Mild LVH. mild to Moderate mitral regurgitation. Mildly dilated aortic root. Chest x-ray obtained the time admission revealed cardiomegaly without evidence of congestive heart failure or pulmonary edema. Left pleural effusion with dependent consolidation. Cardiac pacemaker noted. I performed a device interrogation of his dual-chamber permanent pacemaker. [employer]tronic brand. Longevity greater than 9 years. 90% ventricular pacing. Episodes of atrial fibrillation not supported by intracardiac electrograms. ECG Additional Comments: EKG demonstrated sinus rhythm with frequent atrial ectopy and brief episodes of tachycardia. Occasional demand pacing. Left bundle branch block. PG Care Time/CCT Total # of Minutes Spent Total Time Spent with Patient: Total time spent is greater than 50% in coordination of care (as documented) at patient's floor/unit and/or counseling patient: Coding Level of Care Code 42742 Inpt Consult Level 4 Diagnoses Cardiomyopathy I42.9 Mitral regurgitation I34.0 GILL (dyspnea on exertion) R06.09 Acute CHF I50.9 Left bundle branch block I44.7 Coronary artery disease I25.10 Presence of cardiac pacemaker Z95.0 Elevated troponin R77.8 CPT Codes Dual Lead Pacemaker System - 06097 ([id number])
--- NOTE | 2021-12-04 14:53 | Electrocardiogram Report ---
Test Reason : Blood Pressure : / mmHG Vent. Rate : 096 BPM Atrial Rate : 096 BPM P-R Int : 178 ms QRS Dur : 160 ms QT Int : 418 ms P-R-T Axes : -20 -47 084 degrees QTc Int : 528 ms Sinus rhythm with marked sinus arrhythmia with occasional AV dual-paced complexes and Fusion complexe s PVCs Left axis deviation Left bundle branch block Abnormal ECG When compared with ECG of 02-DEC-2021 12:33, Electronic ventricular pacemaker has replaced Sinus rhythm Confirmed by Rosendo Aparicio ([id number]) on 12/04/2021 2:53:12 PM Referred By: Marilia ZENG Confirmed By:Zeb Aparicio
--- NOTE | 2021-12-04 18:11 | Hospitalist Progress Note ---
Date of Service December 04, 2021 Assessment & Plan (1) Acute CHF: Plan: 61-year-old male with a history of CHF who presents with weight gain, shortness of breath, and elevated BNP with worsening lower extremity edema and without chest pain suspicious for acute on chronic CHF exacerbation Acute on chronic CHF Significantly reduced EFawaiting records, appreciate cardiology input. -Continue aggressive diuresis -Continue afterload reduction with TONI inhibitorif [facility] formulary has Entresto, would definitely want to switch to this -Added spironolactone -Uncertain if present formulary has [id number] so certainly would want to add as well -Suspect ischemic cardiomyopathy as the culpritawaiting records CAD, history of NV See above, no current angina. Awaiting old records. Continue current med management. qt prolongation With hypomagnesemia to 1.2treatedimproved to 1.7. Repeat EKG still shows somewhat long QT. Chronically on mirtazapine and nortriptyline. Follow on telemetry Above meds held, patient reports he does not need to take The pain any longer. Takes nortriptyline for neuropathy Type 2 diabetes mellitus A1c 8.6. On basal bolus insulin. Tighten carb ratio slightly. Anxiety/depression Patient reports he had been on mirtazapine for some adjustment going to [facility], does not need medications any longer. Given QT will also hold GERD PPI LUTS Continue Flomax daily COPD/Asthma No PFTs available for review Continue umeclidinium/Alvesco or formulary eqiuvalent daily DVT prophylaxis Lovenox (2) Anxiety disorder, unspecified: (3) Chronic obstructive pulmonary disease, unspecified: (4) Hyperlipidemia, unspecified: (5) Presence of cardiac pacemaker: (6) Type 2 diabetes mellitus with unspecified complications: Admission and Anticipated Discharge Date Admission Date: December 02, 2021 Subjective Feeling better, breathing better, dyspnea on exertion better, orthopnea improving. Still little bit dizzy whenever he lays downbut notes that this is only happened the last couple of days before admission. Still peeing quite a bit. Cardiology input appreciated. Review of Systems Review of Systems: All systems reviewed & are unremarkable except as noted in HPI & below Physical Exam Physical Exam: Vitals noted, in general he is awake and alert pleasant no distress. HEENT normocephalic atraumatic mucous membranes moist. Breathing unlabored no accessory muscle use good effort. Skin shows no rashes no pallor or icterus. Neuro without focal deficits. Lungs much more clearfaint rales at the base versus just coarse definitely more clear than yesterday. Trace bilateral lower extremity edema, no calf tenderness Results & Data Results & Data ([facility]) Vital Signs (Past 12 Hours) Vital Signs Temp Pulse Resp BP Pulse Ox O2 Del Method 12/04/21 15:48 97.7 F 103 H 20 123/82 94 12/04/21 07:45 Room Air 12/04/21 07:37 97.7 F 99 H 20 134/85 94 Room Air PG Care Time/CCT Total # of Minutes Spent Total Time Spent with Patient: Total time spent is greater than 50% in coordination of care (as documented) at patient's floor/unit and/or counseling patient: Coding Level of Care Code 36018 Subseq Hosp Care Lvl 3 Diagnoses Acute CHF I50.9 Anxiety disorder, unspecified F41.9 Chronic obstructive pulmonary disease, unspecified J44.9 Hyperlipidemia, unspecified E78.5 Presence of cardiac pacemaker Z95.0 Type 2 diabetes mellitus with unspecified complications E11.8
[2021-12-04] MEDS: ENOXAPARIN INJ 40 MG/0.4 ML SYR SQ SCH (21:37)
[2021-12-05 06:32] LABS: Chol HDL Ratio 4.2 (0-5)
--- NOTE | 2021-12-05 07:23 | Electrocardiogram Report ---
Test Reason : Blood Pressure : / mmHG Vent. Rate : 101 BPM Atrial Rate : 101 BPM P-R Int : 216 ms QRS Dur : 146 ms QT Int : 376 ms P-R-T Axes : 007 -43 102 degrees QTc Int : 487 ms Sinus tachycardia with 1st degree A-V block with occasional Premature ventricular complexes demand atrial pacing Left axis deviation Left bundle branch block Abnormal ECG When compared with ECG of 03-DEC-2021 21:06, Sinus rhythm has replaced Electronic ventricular pacemaker Confirmed by Rosendo Aparicio ([id number]) on 12/05/2021 7:23:31 AM Referred By: Marilia SCI Confirmed By:Zeb Aparicio
[2021-12-05] MEDS: ASPIRIN 81 MG ECTAB PO SCH (08:19)
[2021-12-05] MEDS: MAGNESIUM OXIDE 400 MG TAB PO SCH ×2 (08:19→21:12)
[2021-12-05] MEDS: FLUTICASONE FUROATE 100MCG 14 PUFFS/INHALER INH SCH (08:20)
[2021-12-05] MEDS: ATORVASTATIN 40 MG TAB PO SCH (08:20)
[2021-12-05] MEDS: PANTOprazole 40 MG TAB PO SCH (08:20)
[2021-12-05] MEDS: FUROSEMIDE 40 MG/4 ML VIAL IV SCH (08:21)
[2021-12-05] MEDS: UMECLIDINIUM BROMIDE 62.5MCG/BLISTER 7 PUFFS/INHALER INH SCH (08:21)
[2021-12-05] MEDS: INSULIN HUMAN NPH SC SCH ×2 (08:29→16:44)
[2021-12-05] MEDS: INSULIN ASPART PER UNIT SC SCH ×4 (08:29→21:07)
[2021-12-05] MEDS: ACETAMINOPHEN 325 MG TAB PO PRN ×3 (08:31→22:19)
[2021-12-05] MEDS: TAMSULOSIN HCL 0.4 MG CAP PO SCH (08:54)
[2021-12-05] MEDS: FINASTERIDE 5 MG TAB PO SCH (08:54)
[2021-12-05] MEDS: SPIRONOLACTONE 25 MG TAB PO SCH (08:55)
[2021-12-05] MEDS: METOPROLOL SUCC 25MG EXT REL TAB PO SCH (08:55)
--- NOTE | 2021-12-05 10:35 | Pharmacy Report ---
Pharmacy Glycemic Short Note 2 - Date of Service December 05, 2021 - Glycemic Short BSG Results (Last 24 hours): 12/04/21 12/04/21 12/04/21 11:15 16:17 20:13 POC Glucose 238 H 148 H 163 H 12/05/21 07:17 POC Glucose 199 H OUTPATIENT ANTIDIABETIC REGIMEN: * A1C = 8.6% (12/03/21) * NPH 40 units BID + SSI for correction - confirmed with SCI Marilia * metformin 1000 mg PO BID ASSESSMENT: 12/05/21 * Blood sugars rising w/ meals - Dr Tidwell tightened CR last night with dinner, will continue this for now * Fasting 199mg/dl - increase basal 12/03/21 * Jeb is a 61 yo T2DM admitted with CHF. He demonstrated decent BSG control on 12/02/21. * Fasting BSG of 184 mg/dL today. Will start patient on NPH BID per scale. Reduced dose compared to outpatient per I suspect he will receive significantly more Novolog while admitted. * Tighten Novolog parameters based on outpatient insulin use. PLAN FOR INPATIENT GLYCEMIC CONTROL: * Hold outpatient oral diabetes medications * Basal insulin * NPH 35-40 units SQ BID per scale (see eMAR for details) * Bolus insulin * NovoLog per scale ACHS or Q6hrs while NPO * Goal Range: Low 110 mg/dL - High 140 mg/dL * Correction Factor: 20 mg/dL/unit * Nutritional / Prandial insulin per carb ratio of 1 unit per 4 grams CHO consumed
--- NOTE | 2021-12-05 12:42 | Cardiology Progress Note ---
Date of Service December 05, 2021 Assessment & Plan (1) Cardiomyopathy: (2) Mitral regurgitation: (3) GILL (dyspnea on exertion): (4) Acute CHF: (5) Left bundle branch block: (6) Coronary artery disease: (7) Presence of cardiac pacemaker: (8) Elevated troponin: Plan 1. Cardiomyopathy: He has severely reduced LV systolic function. Still awaiting some records from prior ischemic evaluation. We will optimize his medical therapy and consider outpatient angiography. Jardiance ordered. Started back on metoprolol succinate which we will titrate upwards. On spironolactone. Will wait another day or 2 to start Entresto. 2. Decompensated systolic heart failure: Much improved. Significant diuresis with intravenous Lasix. I would advocate returning him to an oral regimen of Lasix tomorrow. 3. Coronary disease: By report. Awaiting report of prior angiography. Wander nue aggressive secondary prevention with a daily aspirin, metoprolol and atorvastatin. 4. Mitral regurgitation: Mild to moderate. 5. Borderline aortic root dilation 6. Bradycardia: He has a normally functioning dual-chamber permanent pacemaker. 7. Left bundle branch block: I thought perhaps there was some pseudo fusion on his prior EKG, but he is not currently pacing the ventricle and continues to have a morphology consistent with left bundle branch block. With persistently low ejection fraction symptoms he would be a good candidate for an upgrade of the device to a biventricular ICD. This can be addressed in the outpatient setting. We will need to optimize his medical therapy 1st. 8. Reported history of intracranial hemorrhage and possible aneurysm. 9. Elevated troponin: Likely related to his cardiomyopathy and acute heart failure. I do not believe this is representative personal service of a recent acute coronary event. 10. Hyperlipidemia: Lipid profile today looked good, but we could be more aggressive by increasing his atorvastatin to 80 mg daily. Admission and Anticipated Discharge Date Admission Date: December 02, 2021 Subjective This morning the patient states he was feeling quite good. His only complaint seems to be this sense of dizziness or falling when he closes eyes in the chair. However, he is not sure this is simply him falling asleep. No dizziness when changing positions or ambulating. Breathing is improved. No chest pain. No sense of palpitation. Review of Systems Review of Systems: Per HPI Physical Exam Physical Exam: The patient is alert and oriented. Mood and affect appeared normal. He answered all questions appropriately. HEENT: Pupils are equal and reactive to light and accommodation. Extraocular movements are intact. The sclerae are anicteric. Neuro: Cranial nerves intact Lungs: Clear to auscultation bilaterally. He has good air movement without use of accessory muscles. No rales wheezes or rhonchi. Cardiac: Heart demonstrates a regular rate and rhythm with frequent ectopy. Normal S1 and S2. No murmurs on examination. Pulses: The patient has palpable radial pulses bilaterally that are equal in intensity Extremities: There was no evidence of hypoperfusion. There is no cyanosis or clubbing. Mild to moderate lower extremity edema to mid calf Skin: I did not appreciate any rashes on examination today. Results & Data ([facility]) Vital Signs (Past 12 Hours) Vital Signs Temp Pulse Resp BP BP Pulse Ox O2 Del Method 12/05/21 11:20 36.4 C L 95 H 20 108/79 97 Room Air 12/05/21 07:18 36.5 C 98 H 22 110/75 94 Room Air 12/05/21 03:00 36.8 C 104 H 20 126/71 92 Room Air Laboratory Results Abnormal Lab Results 12/03/21 12/03/21 12/03/21 13:58 16:09 20:26 Sodium Potassium Chloride Carbon Dioxide Anion Gap BUN Creatinine Est Cr Clr Drug Dosing Est GFR ( Amer) Est GFR (Non-Af Amer) BUN/Creatinine Ratio Glucose POC Glucose 100 H 166 H Calcium Troponin I High Sens 25.1 H 12/04/21 12/04/21 12/04/21 06:22 07:30 11:15 Sodium 135 L Potassium 4.2 Chloride 101 Carbon Dioxide 25 Anion Gap 9 BUN 16 Creatinine 1.09 Est Cr Clr Drug Dosing 89.5 Est GFR ( Amer) 83.3 Est GFR (Non-Af Amer) 71.9 BUN/Creatinine Ratio 14.7 Glucose 185 H POC Glucose 189 H 238 H Calcium 8.8 Troponin I High Sens Diagnostic Findings Echocardiogram obtained on 12/03/2021: Severely reduced LV systolic function with ejection fraction 25-30%. Mild LVH. mild to Moderate mitral regurgitation. Mildly dilated aortic root. Chest x-ray obtained the time admission revealed cardiomegaly without evidence of congestive heart failure or pulmonary edema. Left pleural effusion with dependent consolidation. Cardiac pacemaker noted. I performed a device interrogation of his dual-chamber permanent pacemaker. [employer]tronic brand. Longevity greater than 9 years. 90% ventricular pacing. Episodes of atrial fibrillation not supported by intracardiac electrograms. ECG Additional Comments: EKG demonstrated sinus rhythm with frequent atrial ectopy and brief episodes of tachycardia. Occasional demand pacing. Left bundle branch block. PG Care Time/CCT Total # of Minutes Spent Total Time Spent with Patient: Total time spent is greater than 50% in coordination of care (as documented) at patient's floor/unit and/or counseling patient: Coding Level of Care Code 95500 Subseq Hosp Care Lvl 2 Diagnoses Cardiomyopathy I42.9 Mitral regurgitation I34.0 GILL (dyspnea on exertion) R06.09 Acute CHF I50.9 Left bundle branch block I44.7 Coronary artery disease I25.10 Presence of cardiac pacemaker Z95.0 Elevated troponin R77.8
[2021-12-05 13:53] LABS: BUN Creatinine Ratio 13.4 (10-20); Calcium 9.3 mg/dl (8.5-10.1); Creatinine Clr Calc Pharmacy 76.8 ml/min; Est GFR (African American) 69.2 ml/min; Est GFR (Non-African American) 59.7 ml/min; Potassium 4.7 mmol/L (3.5-5.1)
--- NOTE | 2021-12-05 17:12 | Hospitalist Progress Note ---
Date of Service December 05, 2021 Assessment & Plan (1) Acute CHF: Plan: 61-year-old male with a history of CHF who presents with weight gain, shortness of breath, and elevated BNP with worsening lower extremity edema and without chest pain suspicious for acute on chronic CHF exacerbation Acute on chronic CHF Significantly reduced EFawaiting records, appreciate cardiology input. -Continue diuresis - switch to PO -Continue afterload reduction with TONI inhibitorif jail formulary has Entresto, would definitely want to switch to this -Added spironolactone, can titrate -Uncertain if present formulary has [id number] so certainly would want to add as well -Suspect ischemic cardiomyopathy as the culpritawaiting records, ?need further ischemic w/u while admitted CAD, history of [place] See above, no current angina. Awaiting old records. Continue current med m anagement. qt prolongation With hypomagnesemia to 1.2treatedimproved to 1.7. Repeat EKG still shows somewhat long QT. Chronically on mirtazapine and nortriptyline. Follow on telemetry Above meds held, patient reports he does not need to take The pain any longer. Takes nortriptyline for neuropathy Type 2 diabetes mellitus A1c 8.6. On basal bolus insulin. Tighten carb ratio slightly. Anxiety/depression Patient reports he had been on mirtazapine for some adjustment going to jail, does not need medications any longer. Given QT will also hold GERD PPI LUTS Continue Flomax daily COPD/Asthma No PFTs available for review Continue umeclidinium/Alvesco or formulary eqiuvalent daily DVT prophylaxis Lovenox (2) Anxiety disorder, unspecified: (3) Chronic obstructive pulmonary disease, unspecified: (4) Hyperlipidemia, unspecified: (5) Presence of cardiac pacemaker: (6) Type 2 diabetes mellitus with unspecified complications: Admission and Anticipated Discharge Date Admission Date: December 02, 2021 Subjective Breathing feeling better still. Still voiding quite a bit. Labs reviewed with patient. Overall plan reviewed. Still waiting on records from his cardiologistDr. Diaz in [place]. Unfortunately nobody had sought a r ecords releasecompleted personally with patient myself. Discussed with moe do not believe we would be able to call his cash posting clerk directlybut note that we could call the jail physician to see if he could call or for permission to call. Hopefully will get records soon though. Review of Systems Review of Systems: All systems reviewed & are unremarkable except as noted in HPI & below Physical Exam Physical Exam: In general he is awake and alert pleasant no distress. HEENT normocephalic atraumatic mucous membranes moist. Breathing unlabored no accessory muscle use good effort. Skin shows no rashes no pallor or icterus. Results & Data Results & Data ([facility]) Vital Signs (Past 12 Hours) Vital Signs Temp Pulse Resp BP BP Pulse Ox O2 Del Method 12/05/21 15:15 97.5 F L 100 H 22 123/78 96 Room Air 12/05/21 11:20 97.5 F L 95 H 20 108/79 97 Room Air 12/05/21 07:18 97.7 F 98 H 22 110/75 94 Room Air PG Care Time/CCT Total # of Minutes Spent Total Time Spent with Patient: Total time spent is greater than 50% in coordination of care (as documented) at patient's floor/unit and/or counseling patient: Coding Level of Care Code 09795 Subseq Hosp Care Lvl 3 Diagnoses Acute CHF I50.9 Anxiety disorder, unspecified F41.9 Chronic obstructive pulmonary disease, unspecified J44.9 Hyperlipidemia, unspecified E78.5 Presence of cardiac pacemaker Z95.0 Type 2 diabetes mellitus with unspecified complications E11.8
[2021-12-05] MEDS: ENOXAPARIN INJ 40 MG/0.4 ML SYR SQ SCH (21:12)
[2021-12-06 06:27] LABS: Basophils # (auto) 0.06 K/uL (0-0.2); Basophils % (auto) 0.5 %; Eosinophils % (auto) 1.6 %; Hematocrit (blood only) 42.2 % (40.1-51.0); Hemoglobin 12.9 g/dl (14.0-18.0); Immature Granulocytes # (auto) 0.06 K/uL (0.00-0.02); Immature Granulocytes % (auto) 0.5 %; Lymphocytes # (auto) 2.12 K/uL (1.2-3.4); Lymphocytes % (auto) 16.9 %; Mean Corpuscular Hemoglobin 26.3 pg (25.0-34.0); Mean Corpuscular Hgb Conc 30.6 g/dL (32.0-36.0); Mean Corpuscular Volume 85.9 fL (80.0-100.0); Mean Platelet Volume 12.3 fL (9.4-12.4); Monocytes # (auto) 1.12 K/uL (0.24-0.82); Monocytes % (auto) 8.9 %; Neutrophils # (auto) 8.96 K/uL (1.4-6.5); Neutrophils % (auto) 71.6 %; Platelet Count 257 K/uL (130-400); RDW Standard Deviation 46.5 fL (36.4-46.3); Red Blood Count 4.91 M/uL (4.63-6.08); White Blood Count 12.52 K/ul (4.8-10.8)
[2021-12-06 06:49] LABS: BUN Creatinine Ratio 17.2 (10-20); Calcium 8.9 mg/dl (8.5-10.1); Creatinine Clr Calc Pharmacy 83.5 ml/min; Est GFR (African American) 72.7 ml/min; Est GFR (Non-African American) 62.7 ml/min; Potassium 4.5 mmol/L (3.5-5.1)
[2021-12-06] MEDS: INSULIN ASPART PER UNIT SC SCH ×4 (08:12→20:59)
[2021-12-06] MEDS: INSULIN HUMAN NPH SC SCH ×2 (08:13→16:58)
[2021-12-06] MEDS: FLUTICASONE FUROATE 100MCG 14 PUFFS/INHALER INH SCH (08:19)
[2021-12-06] MEDS: UMECLIDINIUM BROMIDE 62.5MCG/BLISTER 7 PUFFS/INHALER INH SCH (08:19)
[2021-12-06] MEDS: ATORVASTATIN 40 MG TAB PO SCH (08:20)
[2021-12-06] MEDS: METOPROLOL SUCC 25MG EXT REL TAB PO SCH (08:20)
[2021-12-06] MEDS: FINASTERIDE 5 MG TAB PO SCH (08:20)
[2021-12-06] MEDS: PANTOprazole 40 MG TAB PO SCH (08:20)
[2021-12-06] MEDS: ASPIRIN 81 MG ECTAB PO SCH (08:21)
[2021-12-06] MEDS: TAMSULOSIN HCL 0.4 MG CAP PO SCH (08:21)
[2021-12-06] MEDS: SPIRONOLACTONE 25 MG TAB PO SCH (08:21)
[2021-12-06] MEDS: MAGNESIUM OXIDE 400 MG TAB PO SCH ×2 (08:22→21:02)
[2021-12-06] MEDS ORDERED: BUMETANIDE 1 MG TAB PO SCH (09:00)
--- NOTE | 2021-12-06 09:20 | Cardiology Progress Note ---
Date of Service December 06, 2021 Assessment & Plan (1) Cardiomyopathy: (2) Mitral regurgitation: (3) GILL (dyspnea on exertion): (4) Acute CHF: (5) Left bundle branch block: (6) Coronary artery disease: (7) Presence of cardiac pacemaker: (8) Elevated troponin: Plan 1. Cardiomyopathy: He has severely reduced LV systolic function. Still awaiting some records from prior ischemic evaluation. will continue spironolactone, metoprolol succinate and begin Entresto. Blood pressure slightly low this morning so we will wait for a 1st dose until this afternoon. Farxiga and or Jardiance will be added when it is available. 2. Decompensated systolic heart failure: Much improved. Significant diuresis with intravenous Lasix. Return to an oral regimen of daily Bumex 3. Coronary disease: By report. Awaiting report of prior angiography. Continue aggressive secondary prevention with a daily aspirin, metoprolol and atorvastatin. 4. Mitral regurgitation: Mild to moderate. 5. Borderline aortic root dilation 6. Bradycardia: He has a normally functioning dual-chamber permanent pacemaker. more ventricular pacing on telemetry currently. 7. Left bundle branch block: Chronic. Good candidate for VENETIAN BLIND TAPE CUTTER if the LV function remains depressed. 8. Reported history of intracranial hemorrhage and possible aneurysm. 9. Elevated troponin: Likely related to his cardiomyopathy and acute heart failure. I do not believe this is in home sales representative of a recent acute coronary e vent. 10. Hyperlipidemia: Lipid profile today looked good, but we could be more aggressive by increasing his atorvastatin to 80 mg daily. His condition appears to be quite improved. I think he could easily return to his unit from a cardiovascular standpoint today or tomorrow. Will wait some of his outpatient records to determine whether repeat angiography is warranted. This could be arranged on an outpatient basis. Additionally, we will need to see what any ischemic evaluation reveals and how his left ventricle response to medical therapy before recommending a defibrillator or VENETIAN BLIND TAPE CUTTER. Again, this should be deferred to the outpatient setting. Admission and Anticipated Discharge Date Admission Date: December 02, 2021 Subjective Patient claims to be feeling well. He denies dizziness lightheadedness when ambulating back and forth to the bathroom. Did not report the same dizziness he has had over the past few days while closing his eyes. No chest pain. Breathing back to baseline. Lower extremity edema resolved. Review of Systems Review of Systems: Per HPI. Physical Exam Physical Exam: The patient is alert and oriented. Mood and affect appeared normal. He answered all questions appropriately. HEENT: Pupils are equal and reactive to light and accommodation. Extraocular movements are intact. The sclerae are anicteric. Neuro: Cranial nerves intact Lungs: Clear to auscultation bilaterally. He has good air movement without use of accessory muscles. No rales wheezes or rhonchi. Cardiac: Heart demonstrates a regular rate and rhythm with frequent ectopy. Normal S1 and S2. No murmurs on examination. Pulses: The patient has palpable radial pulses bilaterally that are equal in intensity Extremities: There was no evidence of hypoperfusion. There is no cyanosis or clubbing. No lower extremity edema Skin: I did not appreciate any rashes on examination today. Results & Data ([facility]) Vital Signs (Past 12 Hours) Vital Signs Temp Pulse Pulse Pulse Resp BP Pulse Ox 12/06/21 07:00 36.5 C 93 H 18 96/77 L 96 12/06/21 03:00 36.6 C 90 15 103/69 92 12/05/21 23:51 108 H 12/05/21 23:00 36.7 C 100 H 20 134/70 96 O2 Del Method 12/06/21 07:00 Room Air 12/06/21 03:00 Room Air 12/05/21 23:51 12/05/21 23:00 Room Air Laboratory Results Abnormal Lab Results 12/05/21 12/05/21 12/05/21 11:16 13:03 16:19 WBC RBC Hgb Hct MCV MCH MCHC RDW Std Deviation RDW Coeff of Lamonte Plt Count MPV Immature Gran % (Auto) Neut % (Auto) Lymph % (Auto) Johnson % (Auto) Eos % (Auto) Baso % (Auto) Neut # (Auto) Lymph # (Auto) Johnson # (Auto) Eos # (Auto) Baso # (Auto) Immature Gran # (Auto) Sodium 134 L Potassium 4.7 Chloride 99 Carbon Dioxide 25 Anion Gap 10 BUN 17 Creatinine 1.27 Est Cr Clr Drug Dosing 76.8 Est GFR ( Amer) 69.2 Est GFR (Non-Af Amer) 59.7 BUN/Creatinine Ratio 13.4 Glucose 173 H POC Glucose 265 H 87 Calcium 9.3 12/05/21 12/06/21 12/06/21 20:02 05:35 05:35 WBC 12.52 H RBC 4.91 Hgb 12.9 L Hct 42.2 MCV 85.9 MCH 26.3 MCHC 30.6 L RDW Std Deviation 46.5 H RDW Coeff of Lamnote 15.0 H Plt Count 257 MPV 12.3 Immature Gran % (Auto) 0.5 Neut % (Auto) 71.6 Lymph % (Auto) 16.9 Johnson % (Auto) 8.9 Eos % (Auto) 1.6 Baso % (Auto) 0.5 Neut # (Auto) 8.96 H Lymph # (Auto) 2.12 Johnson # (Auto) 1.12 H Eos # (Auto) 0.20 Baso # (Auto) 0.06 Immature Gran # (Auto) 0.06 H Sodium 136 Potassium 4.5 Chloride 102 Carbon Dioxide 25 Anion Gap 9 BUN 21 Creatinine 1.22 Est Cr Clr Drug Dosing 83.5 Est GFR ( Amer) 72.7 Est GFR (Non-Af Amer) 62.7 BUN/Creatinine Ratio 17.2 Glucose 144 H POC Glucose 143 H Calcium 8.9 12/06/21 07:10 WBC RBC Hgb Hct MCV MCH MCHC RDW Std Deviation RDW Coeff of Lamonte Plt Count MPV Immature Gran % (Auto) Neut % (Auto) Lymph % (Auto) Johnson % (Auto) Eos % (Auto) Baso % (Auto) Neut # (Auto) Lymph # (Auto) Johnson # (Auto) Eos # (Auto) Baso # (Auto) Immature Gran # (Auto) Sodium Potassium Chloride Carbon Dioxide Anion Gap BUN Creatinine Est Cr Clr Drug Dosing Est GFR ( Amer) Est GFR (Non-Af Amer) BUN/Creatinine Ratio Glucose POC Glucose 160 H Calcium Diagnostic Findings Echocardiogram obtained on 12/03/2021: Severely reduced LV systolic function with ejection fraction 25-30%. Mild LVH. mild to Moderate mitral regurgitation. Mildly dilated aortic root. Chest x-ray obtained the time admission revealed cardiomegaly without evidence of congestive heart failure or pulmonary edema. Left pleural effusion with dependent consolidation. Cardiac pacemaker noted. I performed a device interrogation of his dual-chamber permanent pacemaker. M Nexterra. Longevity greater than 9 years. 90% ventricular pacing. Episodes of atrial fibrillation not supported by intracardiac electrograms. ECG Additional Comments: EKG demonstrated sinus rhythm with frequent atrial ectopy and brief episodes of tachycardia. Occasional demand pacing. Left bundle branch block. PG Care Time/CCT Total # of Minutes Spent Total Time Spent with Patient: Total time spent is greater than 50% in coordination of care (as documented) at patient's floor/unit and/or counseling patient: Coding Level of Care Code 37531 Subseq Hosp Care Lvl 2 Diagnoses Cardiomyopathy I42.9 Mitral regurgitation I34.0 GILL (dyspnea on exertion) R06.09 Acute CHF I50.9 Left bundle branch block I44.7 Coronary artery disease I25.10 Presence of cardiac pacemaker Z95.0 Elevated troponin R77.8
--- NOTE | 2021-12-06 18:41 | Hospitalist Progress Note ---
Date of Service December 06, 2021 Assessment & Plan (1) Acute CHF: Plan: 61-year-old male with a history of CHF who presents with weight gain, shortness of breath, and elevated BNP with worsening lower extremity edema and without chest pain suspicious for acute on chronic CHF exacerbation Acute on chronic CHF Significantly reduced EFawaiting records, appreciate cardiology input. -Continue diuresis -continue p.o. -Continue afterload reductionEntresto -Added spironolactone, can titrate -Uncertain if present formulary has [id number] so certainly would want to add as well -Suspect ischemic cardiomyopathy as the culpritawaiting records, ?need further ischemic w/u while admitted CAD, history of [place], with myocardial demand ischemiafortunately nothing really consistent with severe problems at this point. Troponin was only mildly elevated, but will await old records to fully assess the severity of his coronary disease, and whether or not a further ischemic work-up might be needed See above, no current angina. Awaiting old records. Continue current med management. qt prolongation With hypomagnesemia to 1.2treatedimproved to 1.7. Repeat EKG still shows somewhat long QT. Chronically on mirtazapine and nortriptyline. Follow on telemetry Above meds held, patient reports he does not need to take The pain any longer. Takes nortriptyline for neuropathy Type 2 diabetes mellitus A1c 8.6. On basal bolus insulin. Sugars reasonable today. Educated on the critical role of lifestyle in type 2 diabetes, as well as the causative role of uncontrolled diabetes in coronary disease. Anxiety/depression Patient reports he had been on mirtazapine for some adjustment going to longterm, does not need medications any longer. Given QT will also hold GERD PPI LUTS Continue Flomax daily COPD/Asthma No PFTs available for review Continue umeclidinium/Alvesco or formulary eqiuvalent daily DVT prophylaxis Lovenox (2) Anxiety disorder, unspecified: (3) Chronic obstructive pulmonary disease, unspecified: (4) Hyperlipidemia, unspecified: (5) Presence of cardiac pacemaker: (6) Type 2 diabetes mellitus with unspecified complications: Admission and Anticipated Discharge Date Admission Date: December 02, 2021 Subjective Feeling better but still peeing a lot. Discussed coronary artery disease, CHF, diabetes, and how they all play off of each other. Discussed ongoing treatment. Still awaiting records as it relates to the status of his coronary disease. Review of Systems Review of Systems: All systems reviewed & are unremarkable except as noted in HPI & below Physical Exam Physical Exam: In general he is awake and alert pleasant no distress. HEENT normocephalic atraumatic mucous membranes moist. Breathing unlabored no accessory muscle use good effort. Skin shows no rashes no pallor or icterus. Neuro without focal deficits. Results & Data Results & Data ([facility]) Vital Signs (Past 12 Hours) Vital Signs Temp Pulse Pulse Pulse Resp BP Pulse Ox 12/06/21 15:19 97.3 F L 89 16 109/67 98 12/06/21 11:00 97.7 F 101 H 18 133/83 97 12/06/21 08:00 96 H 12/06/21 07:00 97.7 F 93 H 18 96/77 L 96 O2 Del Method 12/06/21 15:19 Room Air 12/06/21 11:00 Room Air 12/06/21 08:00 12/06/21 07:00 Room Air PG Care Time/CCT Total # of Minutes Spent Total Time Spent with Patient: Total time spent is greater than 50% in coordination of care (as documented) at patient's floor/unit and/or counseling patient: Coding Level of Care Code 93731 Subseq Hosp Care Lvl 3 Diagnoses Acute CHF I50.9 Anxiety disorder, unspecified F41.9 Chronic obstructive pulmonary disease, unspecified J44.9 Hyperlipidemia, unspecified E78.5 Presence of cardiac pacemaker Z95.0 Type 2 diabetes mellitus with unspecified complications E11.8
[2021-12-06] MEDS: ENOXAPARIN INJ 40 MG/0.4 ML SYR SQ SCH (20:59)
[2021-12-06] MEDS: ACETAMINOPHEN 325 MG TAB PO PRN (21:02)
[2021-12-07] MEDS: INSULIN ASPART PER UNIT SC SCH ×2 (09:58→11:51)
[2021-12-07] MEDS: INSULIN HUMAN NPH SC SCH (10:01)
[2021-12-07] MEDS: ATORVASTATIN 40 MG TAB PO SCH (10:04)
[2021-12-07] MEDS: MAGNESIUM OXIDE 400 MG TAB PO SCH (10:04)
[2021-12-07] MEDS: ASPIRIN 81 MG ECTAB PO SCH (10:06)
[2021-12-07] MEDS: SPIRONOLACTONE 25 MG TAB PO SCH (10:06)
[2021-12-07] MEDS: PANTOprazole 40 MG TAB PO SCH (10:06)
[2021-12-07] MEDS: TAMSULOSIN HCL 0.4 MG CAP PO SCH (10:07)
[2021-12-07] MEDS: METOPROLOL SUCC 25MG EXT REL TAB PO SCH (10:08)
[2021-12-07] MEDS: FLUTICASONE FUROATE 100MCG 14 PUFFS/INHALER INH SCH (10:09)
[2021-12-07] MEDS: UMECLIDINIUM BROMIDE 62.5MCG/BLISTER 7 PUFFS/INHALER INH SCH (10:09)
[2021-12-07] MEDS: FINASTERIDE 5 MG TAB PO SCH (10:10)
[2021-12-07] MEDS ORDERED: SODIUM CHLORIDE 0.9% 250 ML IV ONE (10:33)
--- NOTE | 2021-12-07 11:01 | Discharge Summary ---
Date of Service December 07, 2021 Admission HPI Per Admitting Provider Jeb Rosado is a 61-year-old male with a past medical history of CHF who presents from the [facility] for concerns of a CHF overload. He has had 2 weeks of increased lower extremity swelling with associated shortness of breath, reportedly an echo was performed 11/12 are pending the records of this. Dizziness for one week, worsening shortness of breathWith weight gain and dyspnea on exertion. Denies chest pain/worsening chest pain/angina. No nausea, vomiting, diarrhea. Describes dizziness as fatigue and lightheadedness, not room spinning Had an echo at the senior care 11/12 and was reportedly told that he needed a defibrillator and potential valve at some point, is not sure of the details of this. Report is pending and requested in the ER. Will repeat echo given that this as not been able to be obtained at this time No chest pain at assessment Hx of pacer for bradycardia at [facility] and no problems since. Arrested during placement, had an PA procedurally had a cath and disease not amenable to stending with collaterals per patient Increased shortness of breath worsened with movement NO urinary problems, dysuria. Pees a lot with his Lasix which she takes as prescribed Bilat leg swelling and 21lb weight gain in the last month. Dry weight ~240 pt thinks. Ports he is on metformin and Lantus in the senior care, thinks he is on 40 twice daily +2 units as needed and thinks that this is a long-acting COPD at baseline, feels he has not been wheezing former smoker. Medical History: Reviewed Medications: Reviewed Surgical History: Reviewed Allergies: Reviewed Social History: Reviewed, denies tobacco/etoh in senior care Code Status: Full Principal Diagnosis Acute on chronic CHF Discharge Exam General: A&Ox3. NAD. Cooperative. HEENT: Atraumatic, normocephalic. Pulm: CTA B. Symmetrical chest rise. No increase in work of breathing. No respiratory distress. Cardiac: Regular, intermittently tachycardic. Radial pulses intact and symmetrical. Abdominal: Nontender, nondistended, soft. BS present. Discharge Data Allergies Allergy/AdvReac Type Severity Reaction Status Date / Time No Known Allergies Allergy Verified 11/19/21 16:26 Consultations 12/02/21 16:32 ED Decision to Admit Stat 12/03/21 20:43 Consult Cardiology Routine 12/03/21 20:46 HIM [Consult Health Information Management] Routine Hospital Course (1) Acute CHF: 61-year-old male with a history of CHF who presents with weight gain, shortness of breath, and elevated BNP with worsening lower extremity edema and without chest pain suspicious for acute on chronic CHF exacerbation To do as outpatient: 1. Stop lisinopril 2. Continue Entresto, spironolactone, atorvastatin, metoprolol 3. Continue follow-up for glycemic control. Started on Farxiga 5 mg. If unavailable through senior care would recommend another SGLT2 if available. Repeat A1c within 3 months Acute on chronic CHF Significantly reduced EFawaiting records, appreciate cardiology input. -Continue diuresis -continue p.o. -Continue afterload reductionEntresto -Added spironolactone, can titrate Outpatient follow-up with cardiology CAD, history of [place], with myocardial demand ischemiafortunately nothing really consistent with severe problems at this point. Troponin was only mildly elevated, but will await old records to fully assess the severity of his coronary disease, and whether or not a further ischemic work-up might be needed See above, no current angina. Awaiting old records. Continue current med management. qt prolongation With hypomagnesemia to 1.2treatedimproved to 1.7. Repeat EKG still shows somewhat long QT. Chronically on mirtazapine and nortriptyline. Follow on telemetry Above meds held, patient reports he does not need to take The pain any longer. Takes nortriptyline for neuropathy Type 2 diabetes mellitus A1c 8.6. On basal bolus insulin. Sugars reasonable today. Educated on the critical role of lifestyle in type 2 diabetes, as well as the causative role of uncontrolled diabetes in coronary disease. Farxiga started on discharge Anxiety/depression Patient reports he had been on mirtazapine for some adjustment going to senior care, does not need medications any longer. Given QT will also hold GERD PPI LUTS Continue Flomax daily COPD/Asthma No PFTs available for review Continue umeclidinium/Alvesco or formulary eqiuvalent daily DVT prophylaxis Lovenox (2) Anxiety disorder, unspecified: (3) Chronic obstructive pulmonary disease, unspecified: (4) Hyperlipidemia, unspecified: (5) Presence of cardiac pacemaker: (6) Type 2 diabetes mellitus with unspecified complications: Total Time Total Time Spent Total Time Spent (In Minutes): >30 Discharge Plan Discharge Items [facility] Reason For Visit: CHF, SOB Discharge Diagnosis: CHF Activity: Resume your previous activity Non-emergency contact: Primary Care Provider and Lens Cementer Call non-emergency contact if: you have any medication questions Follow-up/Referrals: Mrailia ZENG [Primary Care Provider] - Diet: Heart Healthy Addtl Attending Provider Instructions: You are seen in the hospital for weight gain and shortness of breath consistent with acute on chronic CHF exacerbation. You have had a prior ultrasound of your heart showed significantly reduced ejection fraction. You have been started on Entresto, spironolactone, and Lasix as needed. Your lisinopril has been stopped, do not take Entresto with any other TONI/ARB class medicine. You should have daily weights at the senior care and if you feel that you have gained more than 3 pounds please take Lasix 20 mg up to daily. You have a history of diabetes which is associated with heart attacks and stroke, and your A1c was above goal. Goal A1c is less than 7, your A1c was 8.6. You will need further diabetes control on return to the senior care, it is recommended that you start an SGLT2 inhibitor such as Farxiga as this has both diabetes and heart benefits. If Farxiga is not available at the present please discuss with infirmity a roughly equivalent option. A prescription for Farxiga 10 mg daily has been sent for you. If you develop any new or worsening symptoms including fever, chills, sweats, chest pain, chest pressure, difficulty breathing, uncontrolled nausea/vomiting, rash, wheezing, passing out or nearly passing out, bleeding, black/bloody bowel movements, or other new or concerning symptoms please call your primary care physician, or call 911 for re-evaluation in the emergency department if you are very concerned. Pending Studies at Discharge: No Stand-Alone Forms: My [employer] Reservations Skilled Items Patient informed of condition?: No Discharge Level of Care: Other Communicable Disease: No Discharge Prognosis: Stable Lines: None Urinary Catheter: No Medications and DC Order Prescriptions: New atorvastatin 40 mg Tablet 80 mg PO QAM Qty: 30 0RF spironolactone 25 mg Tablet 25 mg PO QAM Qty: 30 0RF metoprolol succinate 25 mg Tablet Extended Release 24 Hr 25 mg PO QAM Qty: 30 0RF dapagliflozin 5 mg tablet 5 mg PO DAILY Qty: 30 0RF Entresto 24-26 mg tablet 1 tab PO BID Qty: 30 0RF Continued Alvesco 80 mcg/actuation HFA aerosol inhaler 1 puff inhalation BID albuterol sulfate 90 mcg/actuation HFA aerosol inhaler 2 puff inhalation Q4H PRN acetaminophen [Tylenol Extra Strength] 500 mg tablet 500 mg PO Q6H PRN metformin 1,000 mg tablet 1,000 mg PO BID aspirin 81 mg tablet,delayed release (DR/EC) 81 mg PO DAILY nortriptyline 50 mg capsule 50 mg PO DAILY mirtazapine 30 mg tablet 30 mg PO DAILY furosemide 20 mg tablet 20 mg PO DAILY Incruse Ellipta 62.5 mcg/actuation blister with device 1 inh inhalation DAILY ammonium lactate 12 % cream 1 applic topical DAILY omeprazole 20 mg capsule,delayed release(DR/EC) 20 mg PO DAILY tamsulosin 0.4 mg capsule 0.4 mg PO DAILY finasteride 5 mg tablet 5 mg PO DAILY mineral [id number] glyc Cream topical DAILY Discontinued metoprolol tartrate [Lopressor] 50 mg tablet 25 mg PO BID atorvastatin 40 mg tablet 40 mg PO DAILY lisinopril 20 mg tablet 20 mg PO DAILY Discharge Orders: Discharge Order (Routine); Ordered 12/07/21 Ordered By: Jose David Robledo/Other Patient Handouts: High Blood Sugar (Hyperglycemia), Hypoglycemia (Low Blood Sugar), Managing Type 2 Diabetes Admission Data Admit Date/Time: 12/02/21 17:20 Attending Provider: Jose David Llamas Admit Provider: Jose David Llamas Primary Care Provider: Marilia ZENG Other Providers: Jose David Llamas ; Avtar Johnston Coding Level of Care Code D/C DAY MANAGEMENT >30 MINS Diagnoses Acute CHF I50.9 Anxiety disorder, unspecified F41.9 Chronic obstructive pulmonary disease, unspecified J44.9 Hyperlipidemia, unspecified E78.5 Presence of cardiac pacemaker Z95.0 Type 2 diabetes mellitus with unspecified complications E11.8
--- NOTE | 2021-12-07 11:52 | Cardiology Progress Note ---
Date of Service December 07, 2021 Assessment & Plan (1) Cardiomyopathy: (2) Mitral regurgitation: (3) GILL (dyspnea on exertion): (4) Acute CHF: (5) Left bundle branch block: (6) Coronary artery disease: (7) Presence of cardiac pacemaker: (8) Elevated troponin: Plan 1. Cardiomyopathy: Will likely need an ischemic evaluation in the outpatient setting. Still awaiting some records. Continue current medical regimen which includes metoprolol succinate, spironolactone and bumetanide. Will initiate Entresto in blood pressure is improved this morning. Jardiance or Farxiga also ordered. 2. Decompensated systolic heart failure: Resolved. Lungs clear. Lower extremity edema resolved. Think we will hold his daily dose of diuretic currently. He may do better on a low dose of Lasix once discharge. Alternatively, he could monitor his weight at the facility in take Lasix on a p.r.n. basis. 3. Coronary disease: By report. Awaiting report of prior angiography. Continue aggressive secondary prevention with a daily aspirin, metoprolol and atorvastatin. 4. Mitral regurgitation: Mild to moderate. 5. Borderline aortic root dilation 6. Bradycardia: He has a normally functioning dual-chamber permanent pacemaker. more ventricular pacing on telemetry currently. 7. Left bundle branch block: Chronic. Good candidate for [employer]ATOR if the LV function remains depressed. 8. Reported history of intracranial hemorrhage and possible aneurysm. 9. Elevated troponin: Likely related to his cardiomyopathy and acute heart failure. 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 10. Hyperlipidemia: Lipid profile today looked good, but we could be more aggressive by increasing his atorvastatin to 80 mg daily. Monitoring hemodynamics. I think he would be ready for discharge today. We can follow-up in the clinic with regard to the other issues such as repeat coronary angiography or need for defibrillator. Admission and Anticipated Discharge Date Admission Date: December 02, 2021 Subjective This morning patient claimed he feeling well. He was amazed at how much urination he did yesterday. Some difficulty with urination towards the end of the day with reduced stream and dribbling. No dizziness or lightheadedness. No breathing difficulty. No chest pain or sense of palpitation. Review of Systems Review of Systems: Per HPI Physical Exam Physical Exam: The patient is alert and oriented. Mood and affect appeared normal. He answered all questions appropriately. HEENT: Pupils are equal and reactive to light and accommodation. Extraocular movements are intact. The sclerae are anicteric. Neuro: Cranial nerves intact Lungs: Clear to auscultation bilaterally. He has good air movement without use of accessory muscles. No rales wheezes or rhonchi. Cardiac: Heart demonstrates a regular rate and rhythm with frequent ectopy. Normal S1 and S2. No murmurs on examination. Pulses: The patient has palpable radial pulses bilaterally that are equal in intensity Extremities: There was no evidence of hypoperfusion. There is no cyanosis or clubbing. No lower extremity edema Skin: I did not appreciate any rashes on examination today. Results & Data ([facility]) Vital Signs (Past 12 Hours) Vital Signs Temp Pulse Pulse Pulse Resp BP BP 12/07/21 11:08 36.6 C 101 H 94 H 18 108/79 116/78 12/07/21 10:45 36.6 C 94 H 18 116/78 12/07/21 07:33 36.8 C 96 H 18 87/46 L 12/07/21 07:38 84 12/07/21 07:34 12/07/21 02:46 36.6 C 96 H 18 86/50 L Pulse Ox O2 Del Method 12/07/21 11:08 96 12/07/21 10:45 96 Room Air 12/07/21 07:33 94 Room Air 12/07/21 07:38 12/07/21 07:34 Room Air 12/07/21 02:46 92 Room Air Laboratory Results Abnormal Lab Results 12/06/21 12/06/21 12/07/21 16:09 20:09 07:31 POC Glucose 110 H 163 H 182 H 12/07/21 11:20 POC Glucose 221 H Diagnostic Findings Echocardiogram obtained on 12/03/2021: Severely reduced LV systolic function with ejection fraction 25-30%. Mild LVH. mild to Moderate mitral regurgitation. Mildly dilated aortic root. Chest x-ray obtained the time admission revealed cardiomegaly without evidence of congestive heart failure or pulmonary edema. Left pleural effusion with dependent consolidation. Cardiac pacemaker noted. I performed a device interrogation of his dual-chamber permanent pacemaker. [employer] brand. Longevity greater than 9 years. 90% ventricular pacing. Episodes of atrial fibrillation not supported by intracardiac electrograms. ECG Additional Comments: EKG demonstrated sinus rhythm with frequent atrial ectopy and brief episodes of tachycardia. Occasional demand pacing. Left bundle branch block. PG Care Time/CCT Total # of Minutes Spent Total Time Spent with Patient: Total time spent is greater than 50% in coordination of care (as documented) at patient's floor/unit and/or counseling patient: Coding Level of Care Code 72129 Subseq Hosp Care Lvl 2 Diagnoses Cardiomyopathy I42.9 Mitral regurgitation I34.0 GILL (dyspnea on exertion) R06.09 Acute CHF I50.9 Left bundle branch block I44.7 Coronary artery disease I25.10 Presence of cardiac pacemaker Z95.0 Elevated troponin R77.8
== END 2021-12-07 13:34 | DRG 292 ==
LOC: ED 12:09 → SUATTDRO 17:20 → 2S 17:20